=== PATIENT | male | born 1945 | race Caucasian/White ===

== ENCOUNTER 2016-04-19 21:29 | Inpatient (IN) | payer OTHER ==
[~2016-04-19] VITALS: Ht 177.8 cm; Wt 98.9 kg
--- NOTE | ~2016-04-19 | HC ---
[facility] [address] CONSULTATION Name: JULITA LOMAX Room #: 236-P ADM IN M.R.#: [id number] Admission: 04/19/16 Attend Phys: Hermes Gordillo MD, FAAF Discharge: Date of : 41 Report #: [id number] THIS REPORT FOR: //name// CC: Hermes Shields DATE OF SERVICE: 04/20/2016 ATTENDING PHYSICIAN: Hermes Gordillo MD REASON FOR CONSULTATION: Abdominal pain, nausea. HISTORY OF PRESENT ILLNESS: This is a 70-year-old male patient who lives in a chcf due to significant mental illness who has had difficulty with abdominal pain and nausea over the past couple of days. The patient does have a history of chronic constipation and requires occasional disimpaction. It is uncertain as to when his last bowel movement occurred. The patient denies nausea, vomiting or abdominal pain; however, he is a very poor historian. He was seen in the [place] [facility] where he was found to have leukocytosis and his CT scan revealed changes consistent with a partial small-bowel obstruction. I have been asked to see the patient for further evaluation and treatment. PAST MEDICAL AND SURGICAL HISTORY: Includes hypertension, hypokalemia, gout, bipolar mood disorder, schizoaffective disorder. PAST SURGICAL HISTORY: Laparoscopic cholecystectomy. CURRENT MEDICATIONS: Include ciprofloxacin, Flagyl and p.r.n. medications. At his last hospital discharge in 2013, he was on allopurinol, clonidine, Colace, GlycoLax, Sustenna, iron, losartan/hydrochlorothiazide, Lunesta, omeprazole, Pepto-Bismol, Pristiq, Toprol-XL, and other p.r.n. medications. ALLERGIES: PENICILLIN (unknown reaction). FAMILY HISTORY: Reviewed and noncontributory to this hospitalization. SOCIAL HISTORY: The patient lives in a chcf. There is no use of tobacco, alcohol, or illicit drugs. REVIEW OF SYSTEMS: As per history of present illness. Other review of systems is essentially unobtainable as the patient is unreliable and a poor medical esthetician. PHYSICAL EXAMINATION: VITAL SIGNS: Temperature 97.8, blood pressure 170/81, pulse 53, respirations 17. [facility] [address] [place] [address] CONSULTATION Name: JULITA LOMAX Room #: [address] [place] [address] IN .R.#: [id number] Admission: 04/19/16 Attend Phys: Hermes Gordillo MD, FAAF Discharge: Date of : 43 Report #: [id number] GENERAL: This is a 70-year-old male patient in no apparent distress. HEENT: Atraumatic, normocephalic with dry mucosal membranes. Oropharynx is otherwise clear. NECK: Supple, no appreciable lymphadenopathy. Trachea is midline. CHEST: Clear bilaterally. No crackles or wheezes. CARDIOVASCULAR: Sinus bradycardia. S1, S2. ABDOMEN: Soft and slightly distended with tenderness to palpation, greatest in the upper abdomen. He also has no appreciable incisional ventral hernia, partially reducible at the umbilicus. His laparoscopic cholecystectomy scars are otherwise well healed without apparent herniation. He has no palpable masses. No overlying erythema or edema. No rebound or guarding. GENITOURINARY: Normal external male genitalia. EXTREMITIES: No clubbing or cyanosis with mild right upper extremity edema. NEUROLOGIC: Cranial nerves 2-12 grossly intact. PSYCHIATRIC: Unable to assess. SKIN AND INTEGUMENTARY: No acute inflammatory changes, rashes or lesions are present. LABORATORY DATA: CBC shows a white blood cell count 29.4, hemoglobin 12.7, hematocrit 38.7 and platelets 255 with 88% segmented neutrophils and no bandemia at 3%. His white blood cell count last night was 34.2 with 9% bandemia. Lactic acid level at admission was 4.1. The patient received 2 liters of IV fluids and the patient is currently receiving crystalloid at 80 mL per hour. His lactate is 2.2 this morning. Comprehensive metabolic profile shows a sodium of 143, potassium 3.2, chloride 103, CO2 of 27, BUN 22, creatinine 2.1 and glucose 160 with normal liver function tests. The patient's lipase last night was normal at 78. Urinalysis showed trace protein and trace blood. RADIOLOGIC STUDIES: CT of the abdomen and pelvis without contrast showed findings consistent with a partial small-bowel obstruction with dilated loops of small bowel and interloop mesenteric edema with a transition point in the upper anterior pelvis. The patient also had multiple renal cysts, a fatty liver and a fat containing ventral hernia at the umbilicus without bowel involvement. IMPRESSION AND PLAN: This is a 70-year-old male patient with schizoaffective disorder and bipolar mood disorder significant enough to require his residence in a chcf. He is a poor historian and has pain on exam, but does not complain otherwise. He has evidence for a partial small-bowel obstruction possibly secondary to intraabdominal adhesions from his prior operation. He does not appear to be significantly constipated on the CT scan (he has a history of chronic constipation). The patient would benefit from placement of a nasogastric tube and may require restraints to keep this in place. I will follow along with serial abdominal exams and x-rays. An x-ray will be taken to ensure proper positioning of the nasogastric tube. He will also require increased IV fluids. He may ultimately require operative intervention dependent upon his clinical course. He will be followed closely in the [facility] [address] [place] [address] CONSULTATION Name: DAMIJULITA LAGUNAS Room #: 236-P ADM IN M.R.#: [id number] Admission: 04/19/16 Attend Phys: Hermes Gordillo MD, FAAF Discharge: Date of : 43 Report #: [id number] intensive care unit. I sincerely appreciate the opportunity to participate in the care of this patient and will leave further recommendations and orders in the electronic medical record as appropriate. <ELECTRONICALLY SIGNED> By: Mich Shields MD, FACS 04/22/16 1012 [id number] Mich Shields MD, FACS /nt
--- NOTE | ~2016-04-19 | O ---
[facility] [place] [address] OPERATIVE REPORT Name: JULITA LOMAX Room #: 308-P ADM IN M.R.#: [id number] Admission: 04/19/16 Attend Phys: Hermes Gordillo MD, FAAF Discharge: Date of : 43 Report #: [id number] THIS REPORT FOR: //name// CC: Hermes Shields DATE OF SERVICE: 04/22/2016 PREOPERATIVE DIAGNOSES: 1. Small-bowel obstruction. 2. Incisional ventral hernia. 3. Schizophrenia. 4. Bipolar mood disorder. POSTOPERATIVE DIAGNOSES: 1. Small-bowel obstruction secondary to phytobezoar. 2. Recurrent incarcerated incisional ventral hernia. 3. Schizoaffective disorder. 4. Bipolar mood disorder. PROCEDURE: 1. Laparoscopic converted to open segmental small bowel resection. 2. Laparoscopic lysis of adhesions. 3. Primary repair of recurrent incarcerated incisional ventral hernia. SURGEON: Mich Shields MD BIG DATA ENGINEER: Bernardo Llanos MD and Briana Valerio MS4. ANESTHESIA: General endotracheal anesthesia and local anesthetic. ESTIMATED BLOOD LOSS: 5 mL. SPECIMEN: Segment of mid jejunum. COMPLICATIONS: None appreciated. INDICATIONS FOR PROCEDURE: This is a 70-year-old male patient with mental illness (schizoaffective disorder and bipolar mood disorder) who is a poor historian and lives in a jail. He has a history of chronic constipation requiring occasional fecal disimpaction. He was seen in [place] [facility] where he underwent a CT of the abdomen and pelvis showing changes consistent with a partial small-bowel obstruction. He was treated conservatively with placement of a nasogastric tube and he was followed with serial abdominal exams and x-rays. His initial elevated lactate improved with IV fluid resuscitation. Despite this, he had no clearance of his small-bowel [facility] [address] [place] [address] OPERATIVE REPORT Name: JULITA LOMAX Room #: 308-P [facility] IN .R.#: [id number] Admission: 04/19/16 Attend Phys: Hermes Gordillo MD, FAAF Discharge: Date of : 43 Report #: [id number] obstruction with conservative measures. He presents now for laparoscopic release of his small-bowel obstruction, possible laparotomy. OPERATIVE FINDINGS: Upon entrance into the abdominal cavity laparoscopically, dilated bowel was visualized. The only adhesions present were that of the omentum to the anterior abdominal wall where the recurrent incarcerated incisional ventral hernia was seen. Surgidac sutures were seen at the hernia repair site. The hernia had no bowel involvement; only omentum. There were no other significant intra-abdominal adhesions and as such an internal hernia was not identified. The small bowel was run several times and it was determined that there was a mass present in the small bowel causing the obstruction. The cause of the obstruction appeared to be secondary to an unchewed, undigested whole Brussel sprout. After transversely closing the longitudinal enterotomy used to extract the mass, the lumen of the bowel was palpably smaller than anticipated and thus resection was necessary, particularly given the fact that the patient routinely does not chew his food. No other significant intra-abdominal pathology was identified. At the conclusion of the operation, the sponge, needle, and instrument counts were correct. There was no evidence for iatrogenic injury. DESCRIPTION OF PROCEDURE IN DETAIL: After the benefits and risks of the procedure were explained to the patient and his durable power of defense attorney which include but are not limited to risks of bleeding, infection, possible need for conversion to an open procedure, postoperative pain, and postoperative expectations, informed consent was obtained. The patient was identified in the preoperative holding area. He was given IV antibiotics as documented in the chart in line with the SCIP protocol. The patient was then taken to the operating room and he was placed in the supine position. SCDs were placed on the patient's bilateral lower extremities and pneumatic compression was initiated. The patient was then given IV sedation and he was intubated without incident. His abdomen was prepped and draped in the standard sterile fashion. A time-out was performed to identify the correct patient and procedure. Local anesthetic was infiltrated into the skin and subcutaneous tissue in the left upper quadrant of the abdomen. A small transverse incision was made and a 5 mm Visiport was placed intraperitoneally with a 0-degree angled laparoscope. Pneumoperitoneum was achieved with insufflation of carbon dioxide to 15 mmHg. A 30-degree angled laparoscope was inserted. A left lateral 5 mm and left lower quadrant 5 mm port were each placed under direct visualization after local anesthetic was infiltrated into the skin and subcutaneous tissue and appropriately sized incisions were made. Findings are as noted above. The bowel was run from the ligament of Treitz down to the terminal ileum and back. While doing so, no adhesions were seen. Prior to doing this, omental [facility] [address] [place] [address] OPERATIVE REPORT Name: JULITA LOMAX Room #: 308-P ADM IN M.R.#: [id number] Admission: 04/19/16 Attend Phys: Hermes Gordillo MD, [facility] Discharge: Date of : 43 Report #: [id number] adhesions to the anterior abdominal wall were carefully taken down with blunt dissection and judicious use of the ultrasonic dissector. Again, there was no bowel involvement. An internal hernia was not identified. After running the bowel several times, mass was palpable at visible transition zone. A grasper was placed on the bowel proximal to this area. A small vertical midline incision was then made through the old hernia and the abdominal cavity was desufflated. The small bowel was delivered through the opening. The subcutaneous tissue and hernia sac had been opened with electrocautery. After delivering the mass, decision was made to initially try extracting the mass with an enterotomy. A longitudinal full thickness enterotomy was created with a 10 blade scalpel. The mass was excised (it appeared to be an unchewed, undigested Brussel sprout). The mass was sent for specimen. The bowel was then closed transversely so as to attempt to not narrow the lumen. Interrupted 3-0 PDS sutures with full thickness bites were used to close the enterotomy. Interrupted 3-0 PDS Lembert sutures were used to imbricate the repair. The repair was tested with pinching off the bowel distal to the closure with milking of small bowel content from the proximal aspect. There was no leakage; however, the lumen of the bowel was palpably diminished secondary to the closure. Decision was made to resect the area. Proximal and distal to the closure site, mesenteric windows were made with electrocautery. Blue load ALLEY stapler was then used to staple and divide the bowel proximally and distally. The mesentery was divided with the LigaSure impact energy device. The segment of mid jejunum was sent for specimen. The small bowel was then anastomosed in a bobo-ta-gjie functional end-to-end fashion. The antimesenteric corners of the bowel were approximated with a 3-0 PDS suture. The antimesenteric corners were excised. Each limb of the 75-mm blue load ALLEY stapler was then passed down each limb of the small bowel at the antimesenteric surface. The stapler was fired and removed. The common enterotomy was then approximated with Allis clamps. A blue load 60 mm TX stapler was then used to staple off the common enterotomy. A simple interrupted 3-0 PDS anti-tension suture was placed at the crotch of the anastomosis. The mesenteric defect was also closed with a running 3-0 PDS suture. The common enterotomy staple line was imbricated with interrupted 3-0 PDS sutures as well. The anastomosis was palpably patent. The small bowel was then run manually through the incision. The small bowel and the anastomosed segment were returned to the abdominal cavity. The fascia was then closed with a running #1 PDS suture. Prior to tying the suture, the abdominal cavity was reinsufflated to ensure no incorporation of abdominal content. The abdomen was visualized and did appear to be stable with no evidence for iatrogenic injury. The abdominal cavity was then desufflated after tying the fascial suture. The wound was irrigated. The ports were removed. Interrupted subcuticular 4-0 Monocryl sutures and Dermabond were used to close the port site incisions. The PDS suture used to close the midline incision. Essentially repaired the recurrent incarcerated incisional ventral hernia. Prior to doing so, the Surgidac foreign body sutures were removed. The wound [address] [address] OPERATIVE REPORT Name: JULITA LOMAX Room #: 308-P ADM IN M.R.#: [id number] Admission: 04/19/16 Attend Phys: Hermes Gordillo MD, FAAF Discharge: Date of : 43 Report #: [id number] was then irrigated. The INSORB absorbable skin closure device was then used to close the midline incision. The patient tolerated the procedure well. He was awakened, extubated, and taken to recovery room in stable condition with no apparent intraoperative complications. <ELECTRONICALLY SIGNED> By: Mich Shields MD, FACS 04/25/16 0741 [id number] Mich Shields MD, FACS /nt
--- NOTE | ~2016-04-19 | H ---
[facility] [place] [address] HISTORY AND PHYSICAL Name: JULITA LOMAX Room #: 308-P [facility] IN M.R.#: [id number] Admission: 04/19/16 Attend Phys: Hermes Gordillo MD, [facility] Discharge: 04/30/16 Date of : 43 Report #: [id number] THIS REPORT FOR: //name// CC: Hermes Shields DATE OF SERVICE: 04/20/2016 CHIEF COMPLAINT: Abdominal pain. HISTORY OF PRESENT ILLNESS: The patient is a 70-year-old white male well known to me. He is a [facility] resident at [facility] and I have taken care of him for a number of years. He developed abdominal pain on the day of the admission. It was evaluated in the Emergency Department at [facility]. CT scan showed partial small-bowel obstruction. He also had a dramatic leukocytosis in the 34,000 range and a positive lactate consistent with sepsis. He is admitted to the ICU. IV antibiotics were started with Cipro and Flagyl and a General Surgery consult for Dr. Mich Shields was placed. PAST MEDICAL HISTORY: Hypertension, hypokalemia, gout, schizoaffective disorder, bipolar affective disorder. MEDICATIONS: Allopurinol 300 mg 1 p.o. daily, Klor-Con 20 mEq 1 p.o. daily, ferrous sulfate 325 mg 1 p.o. daily, losartan/hydrochlorothiazide 50/12.51 p.o. daily, omeprazole 20 mg 1 p.o. daily, Lunesta 2 mg 1 p.o. at bedtime p.r.n. insomnia, MiraLax 17 grams p.o. daily p.r.n. constipation, Flomax 0.4 mg 1 p.o. one half hour after same meal each day, multivitamin 1 p.o. daily, Pristiq 50 mg p.o. daily, Robitussin p.r.n. cough, Pepto-Bismol p.r.n, Colace 100 mg 1 p.o. b.i.d. p.r.n. stool softener, Toprol-XL 50 mg 1 p.o. b.i.d., clonidine 0.1 mg p.o. t.i.d., Abilify ER 400 mg IM monthly. ALLERGIES: PENICILLIN. SOCIAL HISTORY: Nonsmoker, nondrinker. Lives in [facility], [facility]. FAMILY HISTORY: Noncontributory. REVIEW OF SYSTEMS: GENERAL: He has had no fever or chills. He has had nausea without vomiting. EYES: No visual changes. ENT: No problems with hearing, swallow, taste or smell. CARDIOVASCULAR: No chest pain or palpitations. RESPIRATORY: No difficulty breathing. GASTROINTESTINAL: Abdominal pain, partial small-bowel obstruction, nausea without vomiting. GENITOURINARY: BPH, but no current problems urinating. [address] [address] HISTORY AND PHYSICAL Name: JULITA LOMAX Room #: 308-P [facility] IN M.R.#: [id number] Admission: 04/19/16 Attend Phys: Hermes Gordillo MD, FAAF Discharge: 04/30/16 Date of : 43 Report #: [id number] MUSCULOSKELETAL: No muscle or joint pain. NEUROLOGIC: No paresis, paralysis or paresthesias. PSYCHIATRIC: No feelings of depression. He is bipolar, but his affect is bright presently despite being sick. DERMATOLOGIC: No disturbing lesions or rash. Remainder of system review is negative. OBJECTIVE: VITAL SIGNS: Temperature 36.9, pulse 115, respirations 16, blood pressure 145/90, pulse ox on 2 liters nasal cannula 96%. He weighs 200 pounds or 90.72 kilograms. He is in a good mood. He has an NG tube to intermittent wall suction. HEENT: Pupils equal, round, react to light and accommodation. Extraocular muscles intact. Pharynx unremarkable. NECK: Supple. CARDIOVASCULAR: S1, S2. LUNGS: Clear. ABDOMEN: Slightly distended and mildly diffusely tender. He does have sluggish bowel sounds. EXTREMITIES: No cyanosis, clubbing or edema. NEUROLOGIC: Intact without focal neurologic deficits. LABORATORY DATA: CBC: White count 34.2, hemoglobin 13.9, hematocrit 41.6, platelets 266,000. Differential white count 85% segmented neutrophils, 9% band forms. Serum chemistry: Sodium 143, potassium 3.6, chloride 102, CO2 of 27, BUN 25, creatinine 2.4, estimated glomerular filtration rate 27. Glucose 196. Lactate 4.1. Calcium 9.7, total bilirubin 0.7, AST 29, ALT 36, alkaline phosphatase 126, total protein 7.1. Albumin 3.4, lipase 78. IMAGING: CT scan abdomen and pelvis without contrast done from the Emergency Room shows findings consistent with partial small-bowel obstruction with dilated loops of small bowel with interloop mesenteric edema and transition point within the anterior upper pelvis. Multiple bilateral renal masses most consistent with cysts are seen increased in size in the interval with the large exophytic from the left superior renal pole measuring up to 10.5 cm, fatty liver and fat containing umbilical hernia. ASSESSMENT: Partial small-bowel obstruction, sepsis, abdominal pain, leukocytosis, hypertension, bipolar affective disorder, schizoaffective disorder. [address] [place] [address] HISTORY AND PHYSICAL Name: JULITA LOMAX Room #: 308-P [facility] IN M.R.#: [id number] Admission: 04/19/16 Attend Phys: Hermes Gordillo MD, [facility] Discharge: 04/30/16 Date of : 43 Report #: [id number] PLAN: Admit to ICU. IV antibiotics, ____, agree with NG tube. General surgery consult working. Follow labs longitudinally and cultures. <ELECTRONICALLY SIGNED> By: Hermes Gordillo MD, PROSPER, JOSIE 05/01/16 1512 1358 [id number] Hermes Gordillo MD, PROSPER, FACEP /nt
--- NOTE | ~2016-04-19 | S ---
[facility] [place] [address] SURGICAL PATH RPT PROCEDURE Name: JULITA DIXON Room #: 236-P ADM IN M.R.#: [id number] Admission: 04/19/16 Date of : 41 Discharge: Report #: [id number] Path Case #: [id number] PATHOLOGY REPORT COLLECTION DATE: 04/22/2016 RECEIVED DATE: 04/23/2016 SUBMITTING PHYS: Dr. Mich Shields OTHER PHYS: Dr. Hermes Llanos SPECIMEN(S) RECEIVED: A.Mid jejunum with forgein body B.Contents of incisional ventral hernia * * * * * * * * * * * * FINAL DIAGNOSIS: A. Small bowel, mid jejunum with forgein body, resection: - Marked edema and congestion of the submucosa. - Vegetable material measuring 2.8 cm in greatest dimensions, consistent with a foreign body (gross exam only). - Margins viable and unremarkable. B. Contents of incisional ventral hernia: - Marked acute inflammation with abscess formation amidst fibroadipose tissue. (IUV; 04/24/16) PATHOLOGIST: Genie Price M.D. REPORT ELECTRONICALLY SIGNED BY: Genie Price M.D. DATE/TIME: 04/24/2016 16:07 * * * * * * * * * * * * GROSS PATHOLOGY: A. The specimen is received in formalin labeled "Julita Dixon, mid jejunum with foreign body". Received is an unoriented segment of small bowel measuring 7.2 cm in length by 2.7 cm in diameter. Both margins are stapled closed. The attached mesenteric fat measures 2.7 cm in thickness. The serosal surface is pink-esparza, glistening in appearance with multiple sutures present at the mid-aspect of the specimen. Opening the specimen reveals light esparza mucosa with slightly edematous normal architectural folds. No distinct nodules or lesions are noted grossly. Sectioning through the attached mesenteric fat reveals no readily identifiable lymph nodes. The specimen is submitted representatively as follows: A1-A2 margin and opposite margin A3 customer success representative cross sections of mucosa. Also received within the specimen container is a segment of [address] [address] SURGICAL PATH RPT PROCEDURE Name: JULITA DIXON Room #: 236-P ADM IN [facility].#: [id number] Admission: 04/19/16 Date of : 43 Discharge: Report #: [id number] Path Case #: [id number] vegetative material, possible brussels sprouts, measuring 2.8 x 2.7 x 2.6 cm in greatest dimensions. A gross photograph is taken and sections are not submitted. B. The specimen is received in formalin labeled "Julita Dixon, incisional ventral hernia contents". Received is a segment of yellow-esparza lobulated tissue measuring 3.2 x 1.5 x 0.5 cm in greatest dimensions. Sectioning reveals yellow-esparza, lobulated cut surfaces with no grossly distinct nodules or lesions. The specimen is submitted entirely in cassette B1. (CAA; 04/23/2016) CLINICAL HISTORY: Incisional ventral hernia with bowel obstruction INITIAL CPT CODE(S): A; 77033 B; 70450 Professional services performed by [facility] at [facility] [address] [place] [address] Technical services performed by [facility] at [address] [place] [address], [address], [place] [address]. [facility] [address] [place] [address] PHONE: [phone] DIRECTOR: Nish Orlando M.D. * * * END OF REPORT * * *
--- NOTE | ~2016-04-19 | EKG ---
[address] [address] ELECTROCARDIOGRAM REPORT Name: JULITA LOMAX Room #: 236-P ADM IN M.R.#: [id number] Admission: 04/19/16 Attend Phys: Hermes Gordillo MD, [facility] Discharge: Date of : 41 Report #: [id number] THIS REPORT FOR: //name// [facility] Test Date: 2016-04-23 Test Time: 15:41:48 Pat Name: JULITA LOMAX Department: Room: 236 P Gender: M Hospitality House Supervisor: Parker FONTENOT : 1945 Requested By: Hermes Gordillo Order Number: [id number] MD: Rohith Celis Measurements Intervals [place] Rate: 104 P: 16 WY: 144 QRS: 1 QRSD: 98 T: -9 QT: 446 QTc: 587 Interpretive Statements Sinus tachycardia Supraventricular bigeminy Borderline T abnormalities, diffuse leads Prolonged QT interval No previous ECG available for comparison Electronically Signed On 04-23-2016 16:04:15 WINDER HELPER by Rohith Celis [email or web address] <ELECTRONICALLY SIGNED> By: Rohith Celis MD 04/23/16 1604 1541 1541 Rohith Celis MD /EPI
[~2016-04-19 21:29] MED LIST: ALLOPURINOL 30300 M1 PO; AMBEREN PO; APAP500 PO; CARAFATE 1 GM TA1 G1 PO; CHLORTHALIDONE25 MG PO; CLONIDINE PO; CLONIDINE0.1 PO; COLACE 100 MG100 MG PO; COLACE100 MG PO; DESYREL100 MG PO; DOXYCYCLINE 10100 M1 PO; GENTAMICIN SU3 MG/ML OP; GLYCOLAX POWDER17 G1 PO; GLYCOLAX255 GM PO; HALOPERIDO50 MG/1 M1 IM; HYDROCORTISONE120 M1; INDOMETHACIN 2525 MG PO; INVEGA SUS156 MG/1 M IM; IRON325 PO; K-DUR10 ME1 PO; LOSARTAN-HCTZ1 EACH; LOSARTAN-HCTZ1 EACH PO; LUNESTA2 MG; LUNESTA2 MG PO; NORCO 5-325 TA1 EACH PO; OMEPRAZOLE 20 M20 M1 PO; PEPTO-BISM525 MG/15 PO; POTASSIUM20 PO; PRENATAL + DHA1 EACH PO; PRISTIQ50 M1 PO; PRISTIQ50 MG PO; PROTONIX40 M2 PO; ROBITUSSIN DM118 ML PO; TOPROL XL100 MG PO; TOPROL XL50 MG PO
[2016-04-19 21:30] VITALS: BP 145/90
[2016-04-19 22:02] LABS: HEMATOCRIT 41.6 % (42.0-52.0); HEMOGLOBIN 13.9 gm/dL (14.0-18.0); MCH 29.9 pg (26.0-34.0); MCHC 33.5 % (28.0-37.0); MCV 89.4 fL (80.0-100.0); PLATELET COUNT 266 thou/uL (150-400); RBC 4.66 mil/uL (4.50-6.00); RDW 14.5 % (10.5-14.5); WBC 34.2 thou/uL (4.0-11.0)
[2016-04-19 22:03] LABS: MANUAL DIFF YES
[2016-04-19 22:12] LABS: URINE BILIRUBIN NEGATIVE (Negative); URINE BLOOD TRACE (Negative); URINE COLOR YELLOW; URINE GLUCOSE-RANDOM* NEGATIVE (Negative); URINE KETONES NEGATIVE (Negative); URINE LEUKOCYTES-REFLEX NEGATIVE (Negative); URINE PROTEIN (DIPSTICK) TRACE (Negative); URINE SPECIFIC GRAVITY 1.015 (1.003-1.035); URINE UROBILINOGEN 0.2 E.U./dl (0.2-1.0)
[2016-04-19 22:13] LABS: CALCIUM 9.7 mg/dL (8.5-10.1); CREATININE 2.4 mg/dL (0.6-1.3); POTASSIUM 3.6 mmol/L (3.5-5.1)
[2016-04-19 22:20] LABS: ALBUMIN 3.4 g/dL (3.4-5.0); TOTAL BILIRUBIN 0.7 mg/dL (<0.1-1.0); TOTAL PROTEIN 7.1 g/dL (6.4-8.2)
[2016-04-19 22:35] LABS: ABSOLUTE NEUTROPHILS 32.1 thou/uL (1.4-8.2); PLATELET ESTIMATE NORMAL; TOTAL CELL COUNT 100
[2016-04-19] MEDS ORDERED: GABAPENTIN 100100 MG PO (22:35)
[2016-04-19] MEDS ORDERED: POTASSIUM20 PO (22:36)
[2016-04-19] MEDS ORDERED: THEREMS-M1 EACH PO (22:38)
[2016-04-19] MEDS ORDERED: ROBITUSSIN COU118 M6 (22:40)
[2016-04-20] VITALS (37 sets, daily range): BP systolic 129–203; BP diastolic 71–104
[2016-04-20 04:31] LABS: HEMATOCRIT 38.7 % (42.0-52.0); HEMOGLOBIN 12.7 gm/dL (14.0-18.0); MCH 29.9 pg (26.0-34.0); MCHC 32.9 % (28.0-37.0); MCV 90.6 fL (80.0-100.0); PLATELET COUNT 255 thou/uL (150-400); RBC 4.27 mil/uL (4.50-6.00); RDW 14.5 % (10.5-14.5); WBC 29.4 thou/uL (4.0-11.0)
[2016-04-20 04:32] LABS: MANUAL DIFF YES
[2016-04-20 04:58] LABS: ALBUMIN 2.9 g/dL (3.4-5.0); CALCIUM 9.1 mg/dL (8.5-10.1); CREATININE 2.1 mg/dL (0.6-1.3); POTASSIUM 3.2 mmol/L (3.5-5.1); TOTAL BILIRUBIN 0.8 mg/dL (<0.1-1.0); TOTAL PROTEIN 6.5 g/dL (6.4-8.2)
[2016-04-20 05:01] LABS: ABSOLUTE NEUTROPHILS 26.8 thou/uL (1.4-8.2); PLATELET ESTIMATE NORMAL; TOTAL CELL COUNT 100
[2016-04-21] VITALS (38 sets, daily range): BP systolic 98–210; BP diastolic 38–110
[2016-04-21 05:15] LABS: HEMOGLOBIN 13.2 gm/dL (14.0-18.0); MCH 29.6 pg (26.0-34.0); MCV 89.4 fL (80.0-100.0); PLATELET COUNT 243 thou/uL (150-400); RBC 4.47 mil/uL (4.50-6.00); RDW 14.7 % (10.5-14.5); WBC 19.6 thou/uL (4.0-11.0)
[2016-04-21 05:27] LABS: MANUAL DIFF YES
[2016-04-21 05:32] LABS: ALBUMIN 2.9 g/dL (3.4-5.0); CALCIUM 9.2 mg/dL (8.5-10.1); CREATININE 1.8 mg/dL (0.6-1.3); POTASSIUM 3.4 mmol/L (3.5-5.1); TOTAL BILIRUBIN 0.6 mg/dL (<0.1-1.0); TOTAL PROTEIN 6.5 g/dL (6.4-8.2)
[2016-04-21 06:48] LABS: ABSOLUTE NEUTROPHILS 16.7 thou/uL (1.4-8.2); PLATELET ESTIMATE NORMAL; TOTAL CELL COUNT 100
[2016-04-21 20:56] LABS: MAGNESIUM 1.5 mg/dL (1.8-2.4)
[2016-04-21 21:09] LABS: POTASSIUM 2.9 mmol/L (3.5-5.1)
[2016-04-22] VITALS (77 sets, daily range): BP systolic 120–174; BP diastolic 63–143
[2016-04-22 04:55] LABS: CALCIUM 9.4 mg/dL (8.5-10.1); CREATININE 1.9 mg/dL (0.6-1.3); POTASSIUM 3.3 mmol/L (3.5-5.1)
[2016-04-22 05:01] LABS: ABSOLUTE NEUTROPHILS 12.9 thou/uL (1.4-8.2); BASOPHILS 0.4 % (0.0-2.0); EOSINOPHILS 2.1 % (0.0-3.0); HEMATOCRIT 41.7 % (42.0-52.0); HEMOGLOBIN 13.7 gm/dL (14.0-18.0); LYMPHOCYTES 10.8 % (24.0-44.0); MCH 29.9 pg (26.0-34.0); MCHC 32.8 % (28.0-37.0); MCV 91.1 fL (80.0-100.0); MONOCYTES 6.2 % (1.0-8.0); PLATELET COUNT 272 thou/uL (150-400); POLYS 80.5 % (36.0-66.0); RBC 4.58 mil/uL (4.50-6.00)
[2016-04-22 05:05] LABS: MANUAL DIFF NO
[2016-04-23] VITALS (89 sets, daily range): BP systolic 121–175; BP diastolic 53–150
[2016-04-24] VITALS (47 sets, daily range): BP systolic 95–168; BP diastolic 54–96
[2016-04-24 05:57] LABS: ABSOLUTE NEUTROPHILS 14.1 thou/uL (1.4-8.2); BASOPHILS 0.5 % (0.0-2.0); EOSINOPHILS 2.4 % (0.0-3.0); HEMATOCRIT 38.1 % (42.0-52.0); HEMOGLOBIN 12.4 gm/dL (14.0-18.0); LYMPHOCYTES 10.5 % (24.0-44.0); MCH 29.5 pg (26.0-34.0); MCHC 32.7 % (28.0-37.0); MCV 90.2 fL (80.0-100.0); PLATELET COUNT 242 thou/uL (150-400); POLYS 78.6 % (36.0-66.0); RBC 4.22 mil/uL (4.50-6.00); RDW 15.1 % (10.5-14.5)
[2016-04-24 06:01] LABS: MANUAL DIFF NO
[2016-04-24 06:14] LABS: ALBUMIN 2.4 g/dL (3.4-5.0); CALCIUM 8.5 mg/dL (8.5-10.1); CREATININE 1.9 mg/dL (0.6-1.3); MAGNESIUM 1.4 mg/dL (1.8-2.4); POTASSIUM 3.6 mmol/L (3.5-5.1); TOTAL BILIRUBIN 0.5 mg/dL (<0.1-1.0); TOTAL PROTEIN 5.6 g/dL (6.4-8.2)
[2016-04-25 00:02] VITALS: BP 131/67
[2016-04-25 04:00] VITALS: BP 175/98
[2016-04-25 05:13] LABS: ABSOLUTE NEUTROPHILS 16.3 thou/uL (1.4-8.2); BASOPHILS 0.3 % (0.0-2.0); EOSINOPHILS 1.5 % (0.0-3.0); HEMATOCRIT 40.7 % (42.0-52.0); HEMOGLOBIN 12.9 gm/dL (14.0-18.0); LYMPHOCYTES 8.3 % (24.0-44.0); MCH 29.5 pg (26.0-34.0); MCHC 31.8 % (28.0-37.0); MCV 92.7 fL (80.0-100.0); MONOCYTES 6.4 % (1.0-8.0); PLATELET COUNT 296 thou/uL (150-400); POLYS 83.5 % (36.0-66.0); RBC 4.39 mil/uL (4.50-6.00); RDW 15.4 % (10.5-14.5); WBC 19.6 thou/uL (4.0-11.0)
[2016-04-25 05:50] LABS: MANUAL DIFF NO
[2016-04-25 07:30] VITALS: BP 166/93
[2016-04-25 12:20] VITALS: BP 150/95
[2016-04-25 16:00] VITALS: BP 152/94
[2016-04-25 20:15] VITALS: BP 172/99
[2016-04-26 00:56] VITALS: BP 157/77
[2016-04-26 04:15] VITALS: BP 169/99
[2016-04-26 06:15] LABS: ABSOLUTE NEUTROPHILS 10.4 thou/uL (1.4-8.2); BASOPHILS 0.4 % (0.0-2.0); EOSINOPHILS 4.5 % (0.0-3.0); HEMATOCRIT 39.2 % (42.0-52.0); HEMOGLOBIN 12.6 gm/dL (14.0-18.0); LYMPHOCYTES 16.8 % (24.0-44.0); MCH 29.7 pg (26.0-34.0); MCHC 32.1 % (28.0-37.0); MCV 92.5 fL (80.0-100.0); MONOCYTES 6.6 % (1.0-8.0); PLATELET COUNT 296 thou/uL (150-400); POLYS 71.7 % (36.0-66.0); RBC 4.24 mil/uL (4.50-6.00); RDW 14.8 % (10.5-14.5); WBC 14.5 thou/uL (4.0-11.0)
[2016-04-26 06:17] LABS: MANUAL DIFF NO
[2016-04-26 09:22] VITALS: BP 149/83
[2016-04-26 13:54] VITALS: BP 151/96
[2016-04-26 21:10] VITALS: BP 160/94
[2016-04-27 00:25] VITALS: BP 175/80
[2016-04-27 05:10] VITALS: BP 165/90
[2016-04-27 05:33] LABS: ABSOLUTE NEUTROPHILS 7.4 thou/uL (1.4-8.2); BASOPHILS 0.7 % (0.0-2.0); EOSINOPHILS 3.8 % (0.0-3.0); HEMATOCRIT 37.5 % (42.0-52.0); HEMOGLOBIN 12.1 gm/dL (14.0-18.0); LYMPHOCYTES 20.6 % (24.0-44.0); MCH 29.7 pg (26.0-34.0); MCHC 32.2 % (28.0-37.0); MCV 92.5 fL (80.0-100.0); MONOCYTES 8.3 % (1.0-8.0); PLATELET COUNT 279 thou/uL (150-400); POLYS 66.6 % (36.0-66.0); RBC 4.06 mil/uL (4.50-6.00); RDW 14.7 % (10.5-14.5); WBC 11.1 thou/uL (4.0-11.0)
[2016-04-27 06:08] LABS: MANUAL DIFF NO
[2016-04-27 12:25] VITALS: BP 146/69
[2016-04-27 19:42] VITALS: BP 140/94
[2016-04-28] VITALS (7 sets, daily range): BP systolic 136–166; BP diastolic 69–86
[2016-04-28 06:01] LABS: EOSINOPHILS 3.8 % (0.0-3.0); HEMATOCRIT 35.4 % (42.0-52.0); HEMOGLOBIN 11.9 gm/dL (14.0-18.0); LYMPHOCYTES 18.8 % (24.0-44.0); MCH 30.4 pg (26.0-34.0); MCHC 33.7 % (28.0-37.0); MCV 90.1 fL (80.0-100.0); MONOCYTES 7.8 % (1.0-8.0); PLATELET COUNT 283 thou/uL (150-400); POLYS 68.6 % (36.0-66.0); RBC 3.92 mil/uL (4.50-6.00); RDW 14.4 % (10.5-14.5); WBC 10.2 thou/uL (4.0-11.0)
[2016-04-28 06:18] LABS: CALCIUM 8.4 mg/dL (8.5-10.1); CREATININE 1.6 mg/dL (0.6-1.3); POTASSIUM 3.6 mmol/L (3.5-5.1)
[2016-04-28 06:19] LABS: MANUAL DIFF NO
[2016-04-29 00:35] VITALS: BP 151/123
[2016-04-29 04:17] VITALS: BP 161/85
[2016-04-29 05:55] LABS: ABSOLUTE NEUTROPHILS 9.2 thou/uL (1.4-8.2); BASOPHILS 0.9 % (0.0-2.0); EOSINOPHILS 2.6 % (0.0-3.0); HEMATOCRIT 35.7 % (42.0-52.0); HEMOGLOBIN 11.9 gm/dL (14.0-18.0); LYMPHOCYTES 19.3 % (24.0-44.0); MCH 29.7 pg (26.0-34.0); MCHC 33.3 % (28.0-37.0); MCV 89.4 fL (80.0-100.0); MONOCYTES 7.9 % (1.0-8.0); PLATELET COUNT 286 thou/uL (150-400); POLYS 69.3 % (36.0-66.0); RDW 14.6 % (10.5-14.5); WBC 13.2 thou/uL (4.0-11.0)
[2016-04-29 06:07] LABS: MANUAL DIFF NO
[2016-04-29 08:50] VITALS: BP 119/81
[2016-04-29 11:49] VITALS: BP 141/74
[2016-04-29 15:02] VITALS: BP 151/82
[2016-04-29 20:00] VITALS: BP 121/71
[2016-04-30 00:07] VITALS: BP 137/69
[2016-04-30 04:41] VITALS: BP 112/73
[2016-04-30 07:46] VITALS: BP 123/79
[2016-04-30 15:49] VITALS: BP 138/57
[2016-04-30 16:14] VITALS: BP 138/57
== END 2016-04-30 19:00 | disposition home or self-care (01) | DRG 854 ==
LOC: ER 21:29 → EROBS 23:42 → ICU 23:42 → 3N 04-24 23:19
PROVIDERS: Emergency Medicine; Family Medicine; Internal Medicine; Surgery
PROC: 05HB33Z Insertion of Infusion Device into Right Basilic Vein, Percutaneous Approach (ICD-10-PCS; 2016-04-23)
PROC: B54MZZA Ultrasonography of Right Upper Extremity Veins, Guidance (ICD-10-PCS; 2016-04-23)
PROC: 0DB80ZZ Excision of Small Intestine, Open Approach (ICD-10-PCS; principal; 2016-04-24)
PROC: 0WQF0ZZ Repair Abdominal Wall, Open Approach (ICD-10-PCS; 2016-04-24)
PROC: 0WJF4ZZ Inspection of Abdominal Wall, Percutaneous Endoscopic Approach (ICD-10-PCS; 2016-04-24)
PROC: 0DNS0ZZ (ICD-10-PCS; 2016-04-24)
DX: A41.9 Sepsis, unspecified organism (principal); K56.5 Intestinal adhesions [bands] with obstruction (postinfection); K56.60 Unspecified intestinal obstruction; N17.9 Acute kidney failure, unspecified; E44.0 Moderate protein-calorie malnutrition; E83.42 Hypomagnesemia; E87.6 Hypokalemia; T18.3XXA Foreign body in small intestine, initial encounter; K59.09 Other constipation; I10 Essential (primary) hypertension; F31.9 Bipolar disorder, unspecified; F25.9 Schizoaffective disorder, unspecified; M10.9 Gout, unspecified; Z79.899 Other long term (current) drug therapy; Z90.49 Acquired absence of other specified parts of digestive tract; Z88.0 Allergy status to penicillin; Z23 Encounter for immunization
CPT/HCPCS: 10078; 10096; 23026; 27000; 50093; 50101; 50249; 50386; 50455; 50555; 50648; 50962; 51435; 51489; 51708; 51712; 52265; 53307; 54118; 56462; 56525; 56526; 56530; 57092; 62110; 62900; 70005

== ENCOUNTER 2017-04-24 15:25 | Inpatient (IN) | payer OTHER ==
[~2017-04-24] VITALS: Ht 177.8 cm; Wt 108.4 kg
[2017-04-24] VITALS: BP 153/77
--- NOTE | ~2017-04-24 | EKG ---
[place] [address] [facility] [place] [address] ELECTROCARDIOGRAM REPORT Name: JULITA LOMAX Room #: 170-8 ADM IN M.R.#: [id number] Admission: 04/24/17 Attend Phys: Sergio Varghese DO Discharge: Date of : 41 Report #: [id number] THIS REPORT FOR: //name// [facility] ED Test Date: 2017-04-24 Test Time: 15:43:29 Pat Name: JULITA LOMAX Department: Room: 170 Gender: M Watch Dial Printer: MZOOK : 1945 Requested By: Galina Philip Order Number: [id number] MD: Yifan Manley Measurements Intervals [place] Rate: 62 P: 40 NM: 200 QRS: 6 QRSD: 105 T: 4 QT: 447 QTc: 454 Interpretive Statements Sinus rhythm No significant abnormality Compared to ECG 04/23/2016 15:41:48 ST (T wave) deviation now present Sinus tachycardia no longer present Atrial premature complex(es) no longer present Electronically Signed On 04-24-2017 17:10:51 CELLULAR EQUIPMENT REPAIRER by Yifan Manley [email or web address] <ELECTRONICALLY SIGNED> By: Yifan Manley MD, [facility] 04/24/17 1710 1543 1543 Yifan Manley MD, [facility] /EPI
[2017-04-24 15:25] VITALS: BP 136/52
[~2017-04-24 15:25] MED LIST changes: +GABAPENTIN 100100 MG PO; +ROBITUSSIN COU118 M6; +THEREMS-M1 EACH PO
[2017-04-24 15:53] LABS: HEMATOCRIT 40.1 % (42.0-52.0); HEMOGLOBIN 13.8 gm/dL (14.0-18.0); MCH 30.5 pg (26.0-34.0); MCHC 34.3 g/dL (28.0-37.0); PLATELET COUNT 291 thou/uL (150-400); RBC 4.51 mil/uL (4.50-6.00); RDW 14.1 % (10.5-14.5)
[2017-04-24 15:57] LABS: ANION GAP 11 mmol/L (7-16); BUN 29 mg/dL (7-18); CALCIUM 9.7 mg/dL (8.5-10.1); CHLORIDE 104 mmol/L (98-107); CO2 27 mmol/L (21-32); CREATININE 2.2 mg/dL (0.7-1.3); GLUCOSE 55 mg/dL (74-106); POTASSIUM 3.1 mmol/L (3.5-5.1); SODIUM 142 mmol/L (136-145)
[2017-04-24 16:05] LABS: ALBUMIN 3.6 g/dL (3.4-5.0); SGOT 36 U/L (15-37); SGPT 54 U/L (30-65); TOTAL BILIRUBIN 0.3 mg/dL (<0.1-1.0); TOTAL PROTEIN 7.5 g/dL (6.4-8.2); TROPONIN-I < 0.04 ng/mL (<0.06)
[2017-04-24 16:30] LABS: ATYPICAL LYMPHS 1 %
[2017-04-24 16:31] LABS: ABSOLUTE NEUTROPHILS 5.3 thou/uL (1.4-8.2)
[2017-04-24 18:23] VITALS: BP 136/52
[2017-04-24] MEDS ORDERED: AMLODIPINE BESY10 MG PO (19:06)
[2017-04-24] MEDS ORDERED: GLUCOTROL5 MG PO (19:07)
[2017-04-24] MEDS ORDERED: CLARITIN10 MG PO (19:07)
[2017-04-24] MEDS ORDERED: GEMFIBROZIL 60600 M1 PO (19:10)
[2017-04-24] MEDS ORDERED: METFORMIN HCL500 MG PO (19:11)
[2017-04-24 20:54] VITALS: BP 136/52
[2017-04-25 03:15] LABS: GLYCOHEMOGLOBIN (HGB A1C) 5.6 % (4.8-5.6)
[2017-04-25 04:01] LABS: HEMATOCRIT 35.8 % (42.0-52.0); HEMOGLOBIN 12.3 gm/dL (14.0-18.0); MCH 30.9 pg (26.0-34.0); MCHC 34.3 g/dL (28.0-37.0); MCV 90.2 fL (80.0-100.0); RBC 3.97 mil/uL (4.50-6.00); RDW 14.2 % (10.5-14.5); WBC 8.4 thou/uL (4.0-11.0)
[2017-04-25 04:10] VITALS: BP 156/90
[2017-04-25 04:35] LABS: ANION GAP 9 mmol/L (7-16); BUN 26 mg/dL (7-18); CALCIUM 9.1 mg/dL (8.5-10.1); CHLORIDE 107 mmol/L (98-107); CHOLESTEROL 148 mg/dL (<200); CO2 27 mmol/L (21-32); GLUCOSE 135 mg/dL (74-106); HDL CHOLESTEROL 28 mg/dL (>40); LDL CHOLESTEROL 92 mg/dL (<100); MAGNESIUM 1.8 mg/dL (1.8-2.4); POTASSIUM 3.5 mmol/L (3.5-5.1); SODIUM 143 mmol/L (136-145); TC:HDL 5.3 Ratio (Not establshd); TRIGLYCERIDE 141 mg/dL (<150); VLDL 28 mg/dL (<40)
[2017-04-25 04:37] LABS: SERUM ASSESSMENT Clear
[2017-04-25 08:00] VITALS: BP 137/82
[2017-04-25 13:20] VITALS: BP 146/77
== END 2017-04-25 13:59 | disposition home or self-care (01) | DRG 638 ==
LOC: ER 15:25 → EROBS 16:47 → 4E 16:47
PROVIDERS: Nurse Practitioner; Physician Assistant
DX: E11.649 Type 2 diabetes mellitus with hypoglycemia without coma (principal); I12.0 Hypertensive chronic kidney disease with stage 5 chronic kidney disease or end stage renal disease; E87.6 Hypokalemia; F31.9 Bipolar disorder, unspecified; F25.9 Schizoaffective disorder, unspecified; E11.22 Type 2 diabetes mellitus with diabetic chronic kidney disease; M10.9 Gout, unspecified; N18.3 Chronic kidney disease, stage 3 (moderate); I34.0 Nonrheumatic mitral (valve) insufficiency; Z79.899 Other long term (current) drug therapy; Z90.49 Acquired absence of other specified parts of digestive tract; Z87.891 Personal history of nicotine dependence; Z88.0 Allergy status to penicillin
CPT/HCPCS: 10183

== ENCOUNTER 2020-08-06 00:03 | Inpatient (IN) | payer OTHER ==
[2020-08-06] VITALS (19 sets, daily range): BP systolic 145–201; BP diastolic 87–135
[~2020-08-06] VITALS: Ht 180.3 cm; Wt 106.1 kg
--- NOTE | ~2020-08-06 | EMS ---
[address] [address] EMS Patient Care Report Name: JULITA LOMAX Room #: 203-P ADM IN M.R.#: [id number] Admission: 08/06/20 Attend Phys: Hermes Gordillo MD, FAAF Discharge: Date of : 43 Report #: [id number] THIS REPORT FOR: //name// Report Transmitted: 08/06/2020 00:59 EMS Care Summary [place], [place] Incident [id number] @ 08/05/2020 23:30 Incident Location [id number] [place], [place] [id number] Patient JULITA LOMAX Male, 75 Years 1945 Patient Address [address] [place], [place] [id number] Patient History Diabetes,Hypertension (HTN),Gastro-Esophageal Reflux Disease (GERD),Bipolar II Disorder,Schizophrenia,Gout,Constipation,Insomnia, Patient Allergies Penicillin allergy, Patient Medications Loratadine, Losartan, Hydrochlorothiazide (Hctz), Amitriptyline, Amlodipine, Clonidine, Glipizide, Allopurinol, Acetaminophen, Chief Complaint CHEST PAIN Disposition Transported Lights/Delong Dispatch Reason Chest Pain (Non-Traumatic) Transported To [facility] Narrative M36 DISPATCHED ON A CHEST PAIN. M36 ARRIVED TO FIND PT SEATED [place] [address] EMS Patient Care Report Name: JULITA LOMAX Room #: 203-P ADM IN M.R.#: [id number] Admission: 08/06/20 Attend Phys: Hermes Gordillo MD, FAAF Discharge: Date of : 43 Report #: [id number] BOARDING HOUSE. PT STATED CHEST PAIN CHIEF COMPLAINT. PT STATED HE WAS IN BED WHEN THE PAIN STARTED. PT RATED THE PAIN INITIALLY AT A 5/10. PT STATED HE GOT UP AND HAD THE CIGARETTE MAKING EXAMINER CALL 911. PT DENIED SHORTNESS OF BREATH. PT SKIN WARM, PINK AND DRY. PT SPOKE IN COMPLETE SENTENCES WITH NO INCREASED WORK OF BREATHING. PT VS TAKEN ON SCENE AND PT FOUND TO BE HYPERTENSIVE. PT STOOD AND PIVOTED TO STRETCHER. PT SECURED WITH SEATBELTS. PT VS TAKEN INCLUDING BLOOD GLUCOSE, TELEVISION CAMERA OPERATOR AND IV THERAPY ESTABLISHED. PT TREATED PER SUSPECTED STEMI PROTOCOL. PT RATED PAIN AFTER NITRO GIVEN SUBLINGUAL AT A 2/ 10. PT VS MONITORED EN ROUTE INCLUDING TELEVISION CAMERA OPERATOR. PT REPORT GIVEN. PT CARE AND BELONGINGS TRANSFERRED TO ER STAFF AT [facility] WITHOUT INCIDENT. M36 PLACED BACK IN SERVICE. Initial Vitals @23:47P: 117,R: 16,Pain: 3/10,GCS: 15,SpO2: 97,IL Suspected: true @23:53P: 86,R: 18,Pain: 2/10,GCS: 15,SpO2: 98,IL Suspected: true @23:59P: 89,R: 16,BP: 176/64,Pain: 2/10,GCS: 15,SpO2: 95,Revised Trauma: 12, @23:45P: 80,R: 16,BP: 196/136,Pain: 3/10,GCS: 15,Glucose: 161,CO: 2,SpO2: 97,Revised Trauma: 12, @23:52P: 82,R: 18,BP: 200/130,Pain: 3/10,GCS: 15,SpO2: 99,Revised Trauma: 12, @23:41P: 80,R: 16,BP: 212/140,Pain: 5/10,GCS: 15,CO: 1,SpO2: 96,Revised Trauma: 12,IL Suspected: true @00:02P: 78,R: 16,Pain: 2/10,GCS: 15,SpO2: 95,IL Suspected: true @23:54P: 86,R: 16,BP: 194/130,Pain: 2/10,GCS: 15,SpO2: 98,Revised Trauma: 12, Assessments @23:40MENTAL:Person Oriented,Time Oriented,Event Oriented,Place Oriented,SKIN:HEENT:LUNG SOUNDS:ABDOMEN:PELVIS//GI:EXTREMITIES:PULSE:Radial: 3+ Bounding,NEURO:@00:00MENTAL:Person Oriented,Event Oriented,Time Oriented,Place Oriented,SKIN:HEENT:LUNG SOUNDS:ABDOMEN:PELVIS//GI:EXTREMITIES:PULSE:Radial: 3+ Bounding,NEURO: Impression Chest Pain / Discomfort Procedures @23:5312-Lead ECGResponse: UnchangedSucceeded@23:4712-Lead ECGResponse: UnchangedSucceeded@00:0212-Lead ECGResponse: UnchangedSucceeded@23:39ALS AssessmentResponse: UnchangedSucceeded@PTAAspirin - 324 Milligrams (mg) - OralResponse: Improved@23:423-Lead ECGResponse: UnchangedSucceeded@23:48Saline Lock 10cc (18 ga) Site: Antecubital-RightResponse: UnchangedSucceeded@23:50Nitrostat - 0.4 Milligrams (mg) - SublingualResponse: Improved@23:55Nitrostat - 0.4 Milligrams (mg) - SublingualResponse: Improved Timeline [facility] [address] [place] [address] EMS Patient Care Report Name: JULITA LOMAX Room #: 203-P ADM IN M.R.#: [id number] Admission: 08/06/20 Attend Phys: Hermes Gordillo MD, FAAF Discharge: Date of : 43 Report #: [id number] DESPATCH CLERK,Aspirin - 324 Milligrams (mg) - Oral,Response: Improved 23:28,Call Received 23:28,Dispatch Notified 23:30,Dispatched 23:31,En Route 23:37,On Scene 23:39,At Patient 23:39,ALS Assessment,Response: UnchangedSucceeded, 23:41,BP: 212/140 M,PULSE: 80,RR: 16 R,SPO2: 96 Ox,ETCO2: ,BG: ,PAIN: 5,GCS: 15, 23:42,3-Lead ECG,Response: UnchangedSucceeded, 23:45,BP: 196/136 M,PULSE: 80,RR: 16 R,SPO2: 97 Ox,ETCO2: ,B,PAIN: 3,GCS: 15, 23:47,12-Lead ECG,Response: UnchangedSucceeded, 23:47,BP: / M,PULSE: 117,RR: 16 R,SPO2: 97 Ox,ETCO2: ,BG: ,PAIN: 3,GCS: 15, 23:48,Saline Lock 10cc 18 ga Site: Antecubital-Right,Response: UnchangedSucceeded, 23:50,Nitrostat - 0.4 Milligrams (mg) - Sublingual,Response: Improved 23:52,BP: 200/130 M,PULSE: 82,RR: 18 R,SPO2: 99 Ox,ETCO2: ,BG: ,PAIN: 3,GCS: 15, 23:53,12-Lead ECG,Response: UnchangedSucceeded, 23:53,BP: / M,PULSE: 86,RR: 18 R,SPO2: 98 Ox,ETCO2: ,BG: ,PAIN: 2,GCS: 15, 23:54,BP: 194/130 M,PULSE: 86,RR: 16 R,SPO2: 98 Ox,ETCO2: ,BG: ,PAIN: 2,GCS: 15, 23:55,Nitrostat - 0.4 Milligrams (mg) - Sublingual,Response: Improved 23:55,Depart Scene 23:59,BP: 176/64 M,PULSE: 89,RR: 16 R,SPO2: 95 Ox,ETCO2: ,BG: ,PAIN: 2,GCS: 15, 00:00,At Destination 00:02,12-Lead ECG,Response: UnchangedSucceeded, 00:02,BP: / M,PULSE: 78,RR: 16 R,SPO2: 95 Ox,ETCO2: ,BG: ,PAIN: 2,GCS: 15, 00:23,Call Closed Disclaimer v1.1 Copyright 2020 [employer] This EMS Care Summary contains data elements from the applicable legal record (which may be displayed differently). It is designed to provide pertinent information for the following purposes: continuity of care, clinical quality, and state data reporting. The complete legal record is available to ED staff and administrators of the receiving hospital in [employer] Patient Tracker. All data is provided "as is."
[~2020-08-06 00:03] MED LIST changes: +AMLODIPINE BESY10 MG PO; +CLARITIN10 MG PO; +GEMFIBROZIL 60600 M1 PO; +GLUCOTROL5 MG PO; +METFORMIN HCL500 MG PO
[2020-08-06 00:24] LABS: MCV 91.3 fL (80.0-100.0)
[2020-08-06 00:25] LABS: ABSOLUTE NEUTROPHILS 5.8 thou/uL (1.4-8.2); BASOPHILS 0.9 % (0.0-2.0); HEMATOCRIT 42.2 % (42.0-52.0); HEMOGLOBIN 14.4 gm/dL (14.0-18.0); LYMPHOCYTES 21.6 % (24.0-44.0); MCH 31.2 pg (26.0-34.0); MCHC 34.2 g/dL (28.0-37.0); PLATELET COUNT 312 thou/uL (150-400); POLYS 59.5 % (36.0-66.0); RBC 4.62 mil/uL (4.50-6.00); RDW 13.9 % (10.5-14.5); WBC 9.7 thou/uL (4.0-11.0)
[2020-08-06 00:32] LABS: CREATININE 3.3 mg/dL (0.7-1.3); POTASSIUM 3.1 mmol/L (3.5-5.1)
[2020-08-06 00:49] LABS: TROPONIN-I 1.6 ng/mL (<0.06)
[2020-08-06 00:52] LABS: APTT 31.4 Seconds (24.5-32.8); INR 1.01
[2020-08-06] MEDS ORDERED: FLOMAX0.4 MG PO ×2 (03:24)
[2020-08-06] MEDS ORDERED: OXYBUTYNIN 5 MG5 M2 PO ×2 (03:26)
[2020-08-06] MEDS ORDERED: AUSTEDO6 MG PO ×2 (03:27)
[2020-08-06] MEDS ORDERED: BENZONATATE200 MG PO ×2 (03:29)
[2020-08-06] MEDS ORDERED: SILTUSSIN DM C118 ML PO ×2 (03:30)
[2020-08-06] MEDS ORDERED: VENTOLIN HFA INH8 GM PO ×2 (03:40)
[2020-08-06] MEDS ORDERED: ARISTADA882 MG/3.2 IM ×2 (03:48)
[2020-08-06] MEDS ORDERED: AMITRIPTYLINE H10 M1 PO ×2 (03:49)
[2020-08-06] MEDS ORDERED: CATAPRES-TTS 31 EAC1 TRANSDERM ×2 (03:51)
[2020-08-06] MEDS ORDERED: COZAAR100 MG PO ×2 (03:54)
--- NOTE | 2020-08-06 04:43 | NUR ---
PATIENT WAS A NEW ADMISSION TO THE UNIT THIS SHIFT. HE ARRIVED VIA BED FROM THE SILK CREPE MACHINE OPERATOR POST CARDIAC CATH. PATIENT IS ALERT AND ORIENTED BUT FORGETFUL. HE IS ABLE TO PARTICIPATE IN HIS ADMISSION. PATIENTS BLOOD PRESSURE IS CHIEF CONCERN. 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 CATH SITE CLEAN, DRY, AND INTACT WITH NO EVIDENCE OF HEMATOMA. PATIENTS BEDREST IS OVER AT 0500. NURSE TO COMPLETE ADMISSION AND INITIATE PLAN OF CARE.
[2020-08-06 06:26] LABS: HEMATOCRIT 44.9 % (42.0-52.0); HEMOGLOBIN 15.5 gm/dL (14.0-18.0); MCH 32.1 pg (26.0-34.0); MCHC 34.5 g/dL (28.0-37.0); MCV 92.9 fL (80.0-100.0); RBC 4.83 mil/uL (4.50-6.00); RDW 14.1 % (10.5-14.5); WBC 12.8 thou/uL (4.0-11.0)
[2020-08-06 06:47] LABS: ALBUMIN 3.4 g/dL (3.4-5.0); CALCIUM 9.5 mg/dL (8.5-10.1); CREATININE 3.3 mg/dL (0.7-1.3); POTASSIUM 3.4 mmol/L (3.5-5.1); TOTAL BILIRUBIN 0.3 mg/dL (0.2-1.0); TOTAL PROTEIN 7.7 g/dL (6.4-8.2)
[2020-08-06 07:11] LABS: TROPONIN-I 141.17 ng/mL (<0.06)
--- NOTE | 2020-08-06 11:50 | CATHLAB ---
[facility] [address] [place] [address] INVASIVE PROCEDURE REPORT Name: JULITA LOMAX Room #: 203-P ADM IN M.R.#: [id number] Admission: 08/06/20 Attend Phys: Hermes Gordillo MD, FAAF Discharge: Date of : 43 Report #: [id number] THIS REPORT FOR: cc: Hermes Gordillo MD FAA FACE Hermes Gordillo MD FAA FACEP Alvaro Ley MD ~ APPROVED REPORT Study performed: 08/06/2020 00:32:10 Patient Details Patient Status: ED Room #: The patient is a 75 year-old male Event Personnel Alvaro Ley Pyrotechnist, Monserrat Alonso RN RN, Meghan Eric RTR, EMERGENCY VEHICLE TECHNICIAN Monitor, Niranjan Wilson RTR Scrub Procedures Performed Art Access - R femoral artery* Left Heart Cath w/or w/o Coronaries [id number] [facility] [address] Initial Mod Sed Same Phys/QHP Gr5y 120016 14842 Mod Sed Same Phys/QHP Ea 595061 [place] Revasc AMI Total/Sub Single LAD C9606 AMIREVSING Hemostasis w/ Mynx Indication STEMI (>0 to less than or equal to 6 hours), Dyspnea, Chest pain Risk Factors Obesity, Hypercholesterolemia, HypertensionRenal Failure, Diabetes Procedure Narrative The Right Groin^ was infiltrated with 1% Lidocaine subcutaneous anesthesia. A PINNACLE 6FR Sheath #[id number] sheath was inserted into the RFA^. Coronary angiography was performed using coronary diagnostic catheters. The right coronary system was accessed and visualized with a JR4 catheter. The left coronary system was accessed and visualized with a JL4 catheter. The left ventricle was accessed and visualized with a ANGLED PIGTAIL catheter. Left ventricular/Aortic Valve gradient assessed via catheter pullback. Pre-demployment femoral angiogram was performed . Closure device was deployed with a 6 Fr MYNXGRIP 6/7F #[id number]. The patient tolerated the procedure well and there were no complications associated with the [facility] [address] [place] [address] INVASIVE PROCEDURE REPORT Name: JULITA LOMAX Room #: 203-P [facility].#: [id number] Admission: 08/06/20 Attend Phys: Hermes Gordillo MD, Discharge: Date of : 43 Report #: [id number] procedure. There was no hematoma. Intraoperative Conscious Sedation Sedation start time: 01:01 Case end Time: 02:03 Fentanyl 50 mcg Versed 1 mg Fluoro Time: 11.46 minutes Dose: DAP 10742.00 cGycm2 1723 mGy Contrast Type and Amount: Visipaque 170 ml Coronary Angiography The patient's coronary anatomy is right dominant. Diagnostic Cath Left Main The left main artery is a large-caliber vessel with mild disease in the distal segment. LAD The LAD is a moderate-sized caliber vessel with mild to moderate disease proximally. There is a severe, subtotal obstruction with a filling defect in the mid LAD segment. There is SARINA II blood flow beyond this occlusion. Diagonal 1 Both the first and second diagonal arteries originate from the proximal LAD segment. Both vessels have severe occlusions in the proximal segment. After the obstruction, both vessels supply the anterolateral wall and terminates at the inferior wall. Circumflex The left circumflex artery has a total occlusion in the midsegment. There appears to be bridging collaterals supplying the distal marginal. Right Coronary The RCA is a dominant vessel with a moderate stenosis in the distal segment, 40%. R PDA This is a moderate-sized caliber vessel with a mild stenosis proximally, 30%. RPLV This is a small to moderate-sized caliber vessel, with no obstructive disease. Left Ventriculography Left Ventriculography was not performed. An LVEDP was measured and there is no gradient across outflow tract. A ventriculogram was not performed due to an elevated creatinine level. Hemodynamics The aortic pressure is 177/97 mmHg with a mean of 131 mmHg. The left ventricular pressure is 194/14 mmHg with a mean of mmHg. The left ventricular end diastolic pressure is 31 mmHg. [facility] [address] [place] [address] INVASIVE PROCEDURE REPORT Name: DAMIJULITA Room #: 203-P [facility] IN M.R.#: [id number] Admission: 08/06/20 Attend Phys: Hermes Gordillo MD, Discharge: Date of : 43 Report #: [id number] PCI Technique Lesion Percutaneous coronary intervention was performed on the proximal/mid left anterior descending artery segment. The lesion stenosis prior to intervention was 99% with SARINA 2 flow. A VISTA 6FR XB 3.5 #[id number] Guide Catheter was used to engage the ostium. A Luge Wire .014 x 182CM #[id number] Interventional Guidewire was used to cross the lesion. BALLOON DILATION A Balloon catheter Euphora RX 2.25 x 15 #[id number] was inserted and inflated up to 10.00atm for 13seconds. Additional Inflation: 10.00atm for 9seconds. STENT DEPLOYMENT A drug-eluting stent RESOLUTE CYNTHIA RX 2.75 X 22 #[id number] was inserted and inflated up to 14.00atm for 21seconds. POST STENT DEPLOYMENT BALLOON DILATION A Balloon catheter Euphora NC RX 2.75 x 15 #[id number] was inserted and inflated up to 18.00atm for 12seconds. Additional Inflation: 18.00atm for 10seconds. Final angiography reveals 0 % stenosis with SARINA 3 flow. Conclusion 1. Successful insertion of a drug-eluting stent into the subtotal occlusion in the proximal/mid LAD segment. 2. Severe occlusions involving the first and second diagonal arteries. Consider staged PCI. 3. There is a total occlusion in the mid segment of the left circumflex artery, with bridging collaterals to the distal marginal. 4. The RCA is a dominant vessel with a moderate distal stenosis. 5. Recommend dual antiplatelet therapy and aggressive risk factor management. <ELECTRONICALLY SIGNED> By: Alvaro Ley MD 08/06/20 1150 1150 1150 Alvaro Ley MD /INF
--- NOTE | 2020-08-06 16:36 | NUR ---
PATIENT HAS RESTED IN ROOM THROUGH THE DAY. HE IS QUITE PLEASANT WITH CARES .USES URINAL AND BLADDER SCAN SHOWS EMPTIED BLADDER POST VOID. HE DENIES ANY PAIN AT THIS TIME. WILL CONT WITP PLAN OF CARE.
[2020-08-06 16:47] LABS: CALCIUM 8.3 mg/dL (8.5-10.1); PHOSPHORUS 2.7 mg/dL (2.6-4.7)
[2020-08-06 16:49] LABS: POTASSIUM 2.8 mmol/L (3.5-5.1)
[2020-08-07 01:20] VITALS: BP 132/82
[2020-08-07 03:14] LABS: HEMATOCRIT 45.4 % (42.0-52.0); HEMOGLOBIN 15.8 gm/dL (14.0-18.0); MCH 31.7 pg (26.0-34.0); MCHC 34.8 g/dL (28.0-37.0); MCV 91.2 fL (80.0-100.0); PLATELET COUNT 316 thou/uL (150-400); RBC 4.98 mil/uL (4.50-6.00); RDW 13.9 % (10.5-14.5)
[2020-08-07 03:16] LABS: ALBUMIN 3.2 g/dL (3.4-5.0); CALCIUM 9.5 mg/dL (8.5-10.1); CREATININE 3.6 mg/dL (0.7-1.3); PHOSPHORUS 2.9 mg/dL (2.5-4.9); POTASSIUM 3.3 mmol/L (3.5-5.1)
[2020-08-07 03:27] LABS: WBC 33.2 thou/uL (4.0-11.0)
[2020-08-07 04:15] LABS: ABSOLUTE NEUTROPHILS 28.2 thou/uL (1.4-8.2); ATYPICAL LYMPHS 1 %
--- NOTE | 2020-08-07 04:40 | NUR ---
PT DR. MITCHELL TOOK TO THE HOGSHEAD FILLER DUE TO HIM COMPLAINING OF CHEST PAIN AT THE BEGINING OF THE SHIFT FOR APROXIMATELY 5 HOURS. EKG DONE BY RN AND NOTIFIED DR. MITCHELL OF PT'S CONDITION AND STATUS. TAKEN TO HOGSHEAD FILLER STENT X2. LEFT GROIN SITE IS CLEAN DRY AND INTACT NO HEMATOMA NOTED. PT IS ALERT AND ORIENTED X4. LUNGS ARE CLEAR ON 3 LITERS NASAL CANULA. PLEASANT. ABDOMEN IS ROUND AND SOFT. SCDS ON BILATERAL. AND VITALS FREQUENT AFTER CATH. CALL LIGHT WITHIN REACH IF NEEDS ASSISTANCE PER NURSING.
[2020-08-07 07:32] VITALS: BP 142/97
--- NOTE | 2020-08-07 07:45 | H ---
[facility] [place] [address] [address] HISTORY AND PHYSICAL Name: JULITA LOMAX Room #: 203-P ADM IN M.R.#: [id number] Admission: 08/06/20 Attend Phys: Hermes Gordillo MD, FAAF Discharge: Date of : 43 Report #: [id number] THIS REPORT FOR: cc: Hermes Gordillo MD, FAAFP FACEHermes Elise MD FAA FACEP Alexi Marshall DO ~ DATE OF SERVICE: 08/06/2020 HISTORY OF PRESENT ILLNESS: This 75-year-old white male was admitted with chest pain like a pressure in his chest, which woke him up, said it was not severe but was enough to make him quite nervous. No dyspnea, diaphoresis or vomiting. He came to the hospital, was found to have acute ST changes with elevated serum troponin, was taken urgently to the denture laboratory technician with Dr. Alvaro Ley who inserted a drug-eluting stent to the LAD. Findings were severe stenosis in the first and second diagonal arteries and 100% occlusion of the left circumflex with bridging collaterals. The patient tolerated the procedure well. He says he is not having any further chest pain. He did not have any chest pain in the past. PAST MEDICAL HISTORY: History of schizophrenia, bipolar disorder, has lived in [facility] for the last 10 years, has arthritis of the knee, status post left knee replacement, cholecystectomy, also history of diabetes type 2, gout, hypertension, chronic kidney disease, and developmental delay. MEDICATIONS ON ADMISSION: Allopurinol 300 mg daily, glipizide 2.5 mg daily, tamsulosin 0.4 mg daily, oxybutynin 5 mg b.i.d., Austedo 6 mg b.i.d., albuterol HFA 2 puffs q.i.d. p.r.n. shortness of breath, aripiprazole 882 mg IM probably monthly, amitriptyline 10 mg at bedtime, clonidine 0.3 patch weekly, losartan 100 mg daily, metoprolol succinate 50 mg b.i.d., paliperidone 156 mg IM monthly, ferrous sulfate 325 mg daily, omeprazole 20 mg daily, MiraLax 17 grams daily, Pristiq 50 mg daily, multivitamin 1 daily, amlodipine 10 mg daily, loratadine 10 mg daily, gemfibrozil 600 mg b.i.d., metformin 500 mg b.i.d. ALLERGIES: PENICILLIN (RASH) REVIEW OF SYSTEMS: He says he walks unassisted. No longer smokes cigarettes, has had all his teeth pulled, but he is able to eat whatever food he wants. Denies arthritic pain, fever, chills, shortness of breath, nausea or vomiting. PHYSICAL EXAMINATION: GENERAL: Pleasant, overweight white male with slight tongue smacking. VITAL SIGNS: BP 175/108, pulse 91, respiration 16, temperature afebrile. HEAD: No rash or trauma. EARS, NOSE, AND THROAT: Edentulous. No lesions. EYES: No icterus. NECK: Supple. LUNGS: Clear. Cough is dry. HEART: Rhythm regular, without murmur. ABDOMEN: Soft and [facility] [address] [place] [address] HISTORY AND PHYSICAL Name: JULITA LOMAX Room #: 203-P [facility] IN M.R.#: [id number] Admission: 08/06/20 Attend Phys: Hermes Gordillo MD, FAAF Discharge: Date of : 41 Report #: [id number] without mass or tenderness or guarding. EXTREMITIES: Trace edema. Palpable pulses in his feet. Feet are warm. No open sores. Sensory function is not tested on this exam. NEUROLOGIC: He has slight tongue smacking. He is very alert and oriented. Knows who is the president, says he voted by MAIL, knows the day and the date. Says he had his knee replaced because of pain, but did not know he had arthritis. Denies any knowledge of any history of kidney disease. LABORATORY DATA: Hemoglobin 14 grams, white count 9700. Sodium 143, potassium 3.4, CO2 of 24, BUN 33, creatinine 3.2, estimated GFR 18, glucose 155, calcium 9.5, AST 370, ALT 56. Troponin serially elevated to 140. Albumin is normal. Chest x-ray is negative. EKG shows a probable acute anterior wall infarct. IMPRESSION: 1. Acute ST-elevation myocardial infarction, anterior wall with drug-eluting stent to the LAD. 2. Possible acute kidney injury. 3. History of chronic kidney disease stage 3. 4. History of schizophrenia, bipolar disorder. 5. Mild dystonia of tongue. 6. History of gout. 7. Hypertension. PLAN: Post-stent orders per Cardiology, monitor kidney function, screening postvoid residual and renal sonogram, cardiac rehab. PROGNOSIS: Guarded. <ELECTRONICALLY SIGNED> By: Alexi Marshall DO 08/07/20 0745 1044 1318 Alexi Marshall DO /nt
--- NOTE | 2020-08-07 09:21 | HC ---
[facility] [address] CONSULTATION Name: JULITA LOMAX Room #: 203-P ADM IN M.R.#: [id number] Admission: 08/06/20 Attend Phys: Hermes Gordillo MD, FAAF Discharge: Date of : 43 Report #: [id number] THIS REPORT FOR: cc: Hermes Gordillo MD FAAFP FACEP Hermes Gordillo MD FAA FACEP Alvaro Ley MD ~ CARDIOLOGY CONSULTATION INDICATION: Chest pain. HISTORY OF PRESENT ILLNESS: This is a 75-year-old gentleman, residing at a long-term care facility, who complained of bilateral chest pains about an hour and half prior to presentation to the ER. He denies any prior history of CAD. He felt associated shortness of breath. There is no history of fever, chills, nausea or diarrhea. ECG reveals ST elevation in leads V2-V4 as well as I and aVL. PAST MEDICAL HISTORY: Hypertension, diabetes mellitus, gout, schizophrenia, bipolar disorder, GERD, insomnia. SOCIAL HISTORY: Denies tobacco use. Resides at a long-term care facility. ALLERGIES: PENICILLIN. MEDICATIONS: Include allopurinol, amlodipine 10 mg daily, clonidine 0.3 mg daily patch, glipizide 5 mg, hydrochlorothiazide half a tablet Friday through Friday; losartan 100 mg daily, and Ventolin. REVIEW OF SYSTEMS: A full 10-point review of systems performed. Only the pertinent positives and negatives are described in the HPI. PHYSICAL EXAMINATION: VITAL SIGNS: Blood pressure is 150/70, heart rate is 70 beats per minute. GENERAL APPEARANCE: This is a mildly overweight male in mild distress. HEENT: Normocephalic, atraumatic. Oral mucosa moist. NECK: Supple. LUNGS: CTA. CARDIAC: Regular rate and rhythm, S1, S2 positive. ABDOMEN: Protuberant, soft, nontender. EXTREMITIES: No cyanosis, trace edema. LABORATORY VALUES: ECG reveals sinus rhythm, PVCs, ST elevation in leads V2-V5, I and aVL. ASSESSMENT AND PLAN: 1. Rule out anterolateral myocardial infarction. Other considerations include [facility] [address] [place] [address] CONSULTATION Name: DAMIJULITA KEARNSEN Room #: 203-P [facility] IN .R.#: [id number] Admission: 08/06/20 Attend Phys: Hermes Gordillo MD, FAAF Discharge: Date of : 41 Report #: [id number] early repolarization versus pericarditis. The patient continues to have chest discomfort. We will proceed with emergent cardiac catheterization. This was explained in detail to the patient. 2. Hypertension, continue medications including amlodipine and losartan. 3. Diabetes mellitus, continue on hypoglycemics and check fingersticks. 4. Hypercholesterolemia, will need statin therapy. <ELECTRONICALLY SIGNED> By: Alvaro Ley MD 08/07/20 0921 0040 0138 Alvaro Ley MD /barb
--- NOTE | 2020-08-07 09:34 | EKG ---
[address] [place] [address] ELECTROCARDIOGRAM REPORT Name: JULITA LOMAX Room #: 203-P ADM IN M.R.#: [id number] Admission: 08/06/20 Attend Phys: Hermes Gordillo MD, FAAF Discharge: Date of : 43 Report #: [id number] [facility] ED Test Date: 2020-08-06 Test Time: 00:06:32 Pat Name: JULITA LOMAX Department: Room: 203 Gender: M It Infrastructure Consultant: RINA : 1945 Requested By: Maddison Jaramillo Order Number: [id number] MD: Yifan Manley Measurements Intervals [place] Rate: 73 P: 8 MD: 247 QRS: -24 QRSD: 102 T: 3 QT: 432 QTc: 476 Interpretive Statements Sinus rhythm Occasional premature ventricular complexes Prolonged MD interval Borderline left axis deviation Anterolateral infarct, acute Baseline wander in lead(s) II,III,aVF Compared to ECG 04/24/2017 15:43:29 Ventricular premature complex(es) now present Myocardial infarct finding now present Electronically Signed On 08-07-2020 9:34:03 CDT by Yifan Manley [email or web address] <ELECTRONICALLY SIGNED> By: Yifan Manley MD, FAC 08/07/20 0934 0006 0006 Yifan Manley MD, FAC /EPI
--- NOTE | 2020-08-07 09:37 | EKG ---
[place] [address] [facility] [place] [address] ELECTROCARDIOGRAM REPORT Name: JULITA LOMAX Room #: 203- ADM IN M.R.#: [id number] Admission: 08/06/20 Attend Phys: Hermes Gordillo MD, FAAF Discharge: Date of : 41 Report #: [id number] [facility] Test Date: 2020-08-06 Test Time: 08:04:03 Pat Name: JULITA LOMAX Department: Room: 203 P Gender: M Electrical And Instrument Engineer: ANTHONY : 1945 Requested By: Alvaro Ley Order Number: [id number] MD: Yifan Manley Measurements Intervals [place] Rate: 98 P: 0 PA: 247 QRS: 19 QRSD: 129 T: 6 QT: 353 QTc: 451 Interpretive Statements Sinus rhythm Prolonged PA interval Nonspecific intraventricular conduction delay Anterior lateral infarct, recent Compared to ECG 08/06/2020 00:06:32 Intraventricular conduction delay now present Ventricular premature complex(es) no longer present Anterolateral injury pattern is less pronounced Electronically Signed On 08-07-2020 9:37:07 CDT by Yifan Manley [email or web address] <ELECTRONICALLY SIGNED> By: Yifan Manley MD, FACC 08/07/20 0937 0804 0804 Yifan Manley MD, [facility] /EPI
--- NOTE | 2020-08-07 09:40 | 2DMMODE ---
[facility] [place] [address] 2 D/M-MODE ECHOCARDIOGRAM Name: JULITA LOMAX Room #: 203-P ADM IN M.R.#: [id number] Admission: 08/06/20 Attend Phys: Hermes Gordillo MD, FAAF Discharge: Date of : 41 Report #: [id number] THIS REPORT FOR: cc: Hermes Gordillo MD, FAAFP, FACEP, Douglas MD FAAFP FACEP Park, Jin S. MD ~ APPROVED REPORT Study performed: 08/07/2020 08:09:55 EXAM: Comprehensive 2D, Doppler, and color-flow Echocardiogram Patient Location: Bedside Room #: 203 Status: routine BSA: 2.20 HR: 111 bpm BP: 117/75 mmHg Rhythm: Tachycardia Other Information Study Quality: Adequate Indications Diabetes CAD Chest Pain Hypertension/HDD STEMI 2D Dimensions IVSd: 15.24 (7-11mm) LVOT Diam: 22.10 (18-24mm) LVDd: 30.42 mm PWd: 15.07 (7-11mm) Ascending Ao: 30.44 (22-36mm) LVDs: 22.53 (25-40mm) Left Atrium: 43.90 (27-40mm) Aortic Root: 30.23 mm IVC: 22.00 mm Aortic Valve AoV Peak Alberto.: 1.49 m/s AO Peak Gr.: 8.82 mmHg LVOT Max P.79 mmHg LVOT Max V: 0.67 m/s BRANDON Vmax: 1.73 cm2 Pulmonary Valve [facility] [place] [address] [place] [address] 2 D/M-MODE ECHOCARDIOGRAM Name: JULITA LOMAX Room #: 203-P ADM IN M.R.#: [id number] Admission: 08/06/20 Attend Phys: Hermes Gordillo MD, Discharge: Date of : 41 Report #: [id number] PV Peak Alberto.: 1.19 m/s PV Peak Gr.: 5.68 mmHg Left Ventricle The left ventricle is normal size. There is hypokinesis in the mid to apical anterior wall. Mild concentric left ventricular hypertrophy. Left ventricular systolic function is mild to moderately decreased. LVEF is 40-45%. This study is not technically sufficient to allow evaluation of the LV diastolic function. Right Ventricle The right ventricle is normal size. The right ventricular systolic function is normal. Atria The left atrium size is normal. The right atrium size is normal. Aortic Valve The aortic valve is normal in structure. No aortic regurgitation is present. There is no aortic valvular stenosis. Mitral Valve The mitral valve is normal in structure. There is no mitral valve regurgitation noted. No evidence of mitral valve stenosis. Tricuspid Valve The tricuspid valve is normal in structure. There is no tricuspid valve regurgitation noted. Pulmonic Valve The pulmonary valve is normal in structure. There is no pulmonic valvular regurgitation. Great Vessels The aortic root is normal in size. IVC is dilated and collapses >50% with inspiration. Pericardium Small pericardial effusion. <Conclusion> The left ventricle is normal size. Mild concentric left ventricular hypertrophy. Left ventricular systolic function is mild to moderately decreased. LVEF is 40-45%. [facility] [address] [place] [address] 2 D/M-MODE ECHOCARDIOGRAM Name: JULITA LOMAX Room #: 203-P ADM IN .R.#: [id number] Admission: 08/06/20 Attend Phys: Hermes Gordillo MD, Discharge: Date of : 41 Report #: [id number] The right ventricle is normal size. The left atrium size is normal. The aortic valve is normal in structure. There is no mitral valve regurgitation noted. <ELECTRONICALLY SIGNED> By: Alvaro Ley MD 08/07/20939 9 9 Alvaro Ley MD /INF
--- NOTE | 2020-08-07 09:41 | EKG ---
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: [facility] : 1945 Requested By: Alvaro Ley Order Number: [id number] MD: Yifan Manley Measurements Intervals [place] Rate: 106 P: 0 WA: 216 QRS: 75 QRSD: 100 T: 20 QT: 328 QTc: 436 Interpretive Statements Sinus tachycardia Prolonged [place] interval Anterolateral infarct, recent Compared to ECG 08/06/2020 08:04:03 No significant change was found Electronically Signed On 08-07-2020 9:41:14 CDT by Yifan Manley [email or web address] <ELECTRONICALLY SIGNED> By: Yifan Manley MD, [facility] 08/07/20 0941 42 42 Yifan Manley MD, FACC /EPI
--- NOTE | 2020-08-07 09:43 | EKG ---
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 : 1945 Requested By: Alvaro Ley Order Number: [id number] MD: Yifan Manley Measurements Intervals [place] Rate: 103 P: 49 NM: 193 QRS: 65 QRSD: 92 T: 55 QT: 334 QTc: 437 Interpretive Statements Sinus tachycardia Atrial premature complex Anterolateral infarct, acute (LAD) Compared to ECG 08/06/2020 19:43:18 Atrial premature complex(es) now present Injury pattern is more pronounced Electronically Signed On 08-07-2020 9:43:44 CDT by Yifan Manley [email or web address] <ELECTRONICALLY SIGNED> By: Yifan Manley MD, [facility] 08/07/20 0943 0743 0743 Yifan Manley MD, [facility] /EPI
[2020-08-07 11:16] VITALS: BP 129/66
--- NOTE | 2020-08-07 14:36 | NUR ---
ASSESSMENT: CM REVIEWED CHART AND SPOKE WITH PATIENT. PT WAS ADMITTED DUE TO CHEST PAIN. PT HAD STEMI AND EMERGENT CATH. PT IS FROM [facility] WHERE HE REPORTS HE HAS LIVED FOR YEARS. PT HAS HX OF SCHIZOPHRENIA AND BIPOLAR. CM ATTEMPTED TO REACH PATIENTS SISTER DESTINY WHO IS LISTED DPOA [phone] BUT UNABLE TO REACH AND VM WAS LEFT. PT REPORTS THAT HE IS NORMALLY INDEPENDENT AT THE ASSISTED LIVING FACILITY. CM ATTEMPTED TO REACH BEAUTIFUL SAVIOR TO GATHER MORE COLLATERAL INFORMATION BUT UNABLE TO CONTACT THE FACILITY AT THIS TIME. CM WILL ATTEMPT TO CONTINUE TO FIND A WORKING NUMBER FOR FACILITY. PLANS ARE LIKELY FOR PATIENT TO RETURN ONCE STABLE. CM FAXED CLINICAL UPDATES TO FACILITY.
--- NOTE | 2020-08-07 15:38 | CATHLAB ---
[facility] [place] [address] [address] INVASIVE PROCEDURE REPORT Name: JULITA LOMAX Room #: 203-P ADM IN M.R.#: [id number] Admission: 08/06/20 Attend Phys: Hermes Gordillo MD, FAAF Discharge: Date of : 41 Report #: [id number] THIS REPORT FOR: cc: Hermes Gordillo MD FAA FACE Hermes Gordillo MD FAA FACEP Alvaro Ley MD ~ APPROVED REPORT Study performed: 08/06/2020 20:39:19 Patient Details Patient Status: In-Patient Room #: 203 The patient is a 75 year-old male Event Personnel Alvaro Ley Supervisor Ovens, Monserrat Alonso RN RN, Niranjan Wilson RTR Monitor, Meghan Eric RTR, POSTAL MAIL CARRIER Scrub Procedures Performed Art Access - L femoral artery* 28421 Initial Mod Sed Same Phys/QHP Gr5y 534818 12285 Mod Sed Same Phys/QHP Ea 010550 [place] Place w/wo Plasty Single DIAG 125473 Hemostasis w/ Mynx Indication Abnormal ECG, Dyspnea, Unstable angina , Chest pain, The patient recently presented with an anterior wall OR undergoing stent placement to the LAD. While recovering in the CCU, he developed substernal chest pains. ECG revealed ST elevation in the high lateral leads. 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 Risk Factors Arterial Hypertension, Hypercholesterolemia, Coronary Artery DiseaseHypertensionRenal Failure Previous Procedures/Diagnoses Previous PCI, Previous OR Procedure Narrative The LFA^ was infiltrated with 1% Lidocaine subcutaneous anesthesia. A PINNACLE 6FR TIF Sheath #[id number] sheath was inserted into the RFA^. Coronary angiography was performed using coronary diagnostic catheters. The left coronary system was accessed and visualized with a VISTA 6FR XB 3.5 #[id number] catheter. Pre-demployment femoral [facility] [place] [address] INVASIVE PROCEDURE REPORT Name: DAMIJULITA KEARNSEN Room #: 203-P [facility] IN M.R.#: [id number] Admission: 08/06/20 Attend Phys: Hermes Gordillo MD, Discharge: Date of : 41 Report #: [id number] angiogram was performed . Closure device was deployed with a 6 Fr 6FR MYNX DREDGE BOAT ENGINEER. The patient tolerated the procedure well and there were no complications associated with the procedure. There was no hematoma. Intraoperative Conscious Sedation Sedation start time: 2109 Case end Time: 2207 Fentanyl 50 mcg Versed 1 mg Fluoro Time: 14.29 minutes Dose: DAP 70362.70 cGycm2 3459 mGy Contrast Type and Amount: Visipaque 205 ml Diagnostic Cath LAD The stent in the mid LAD segment is widely patent. There is mild disease in the proximal segment. There are 2 moderate-sized diagonal arteries, both emanating from the proximal LAD segment. Both vessels have severe diffuse proximal occlusions. Circumflex The left circumflex artery has a total occlusion in the midsegment, the distal marginal vessels fills via bridging collaterals. Hemodynamics The aortic pressure is 157/97 mmHg with a mean of 125 mmHg. PCI Technique Lesion Percutaneous coronary intervention was performed on the first diagnonal branch segment. The lesion stenosis prior to intervention was 95% with SARINA 3 flow. A VISTA 6FR XB 3.5 #[id number] Guide Catheter was used to engage the ostium. A Luge Wire .014 x 182CM #[id number] Interventional Guidewire was used to cross the lesion. BALLOON DILATION A Balloon catheter TREK RX 2.25 X 15 #[id number] was inserted and inflated up to 16.00atm for 19seconds. Additional Inflation: 14.00atm for 12seconds. Additional Inflation: 14.00atm for 13seconds. Additional Inflation: 16 cee for 17 sec. STENT DEPLOYMENT A drug-eluting stent RESOLUTE CYNTHIA RX 2.5 X 18 #[id number] was inserted and inflated up to 18.00atm for 27seconds. POST STENT DEPLOYMENT BALLOON DILATION A Balloon catheter Euphora NC RX 2.75 x 15 #[id number] was inserted and inflated up to 16atm for 12seconds. [address] [address] INVASIVE PROCEDURE REPORT Name: JULITA LOMAX Room #: 203-P [facility] IN .R.#: [id number] Admission: 08/06/20 Attend Phys: Hermes Gordillo MD, Discharge: Date of : 41 Report #: [id number] Final angiography reveals 0 % stenosis with SARINA 3 flow. PCI Technique Lesion 2 Percutaneous Coronary Intervention was performed on the second diagnonal branch segment. The lesion stenosis prior to intervention was 95% with SARINA 3 flow. A VISTA 6FR XB 3.5 #[id number] Guide Catheter was used to engage the ostium. A Luge Wire .014 x 182CM #[id number] Interventional Guidewire was used to cross the lesion. Balloon Dilation A Balloon catheter TREK RX 2.25 X 15 #[id number] was inserted and inflated up to 14.00atm for 12seconds. Additional Inflation: 10.00atm for 8seconds. Additional Inflation: 14.00atm for 10seconds. Additonal Inflation: 14 cee for 17 sec. Additonal Inflation: 14 cee for 11 sec. Additonal Inflation: 16 cee for 13 sec. Stent Deployment A drug-eluting stent RESOLUTE CYNTHIA RX 2.5 X 22 #[id number] was inserted and inflated up to 16atm for 17seconds. Additional Inflation: 14.00atm for 13seconds. Final angiography reveals 0 % stenosis with SARINA 3 flow. Conclusion 1. Successful insertion of a drug-eluting stent into the first diagonal artery. 2. Successful insertion of a drug-eluting stent into the second diagonal artery. 3. The stent in the mid LAD segment is widely patent. 4. Recommend dual antiplatelet therapy and aggressive risk factor management. <ELECTRONICALLY SIGNED> By: Alvaro Ley MD 08/07/20 1538 1538 1538 Alvaro Ley MD /INF
[2020-08-07 15:49] VITALS: BP 136/69
[2020-08-07 16:13] LABS: URINE BILIRUBIN NEGATIVE (Negative); URINE BLOOD 1+ (Negative); URINE CLARITY CLEAR; URINE COLOR YELLOW; URINE GLUCOSE-RANDOM* NEGATIVE (Negative); URINE KETONES TRACE (Negative); URINE LEUKOCYTES NEGATIVE (Negative); URINE NITRITE NEGATIVE (Negative); URINE PROTEIN (DIPSTICK) 3+ (Negative); URINE UROBILINOGEN 0.2 E.U./dl (0.2-1.0)
[2020-08-07 16:18] LABS: URINE CREATININE-RANDOM* 163.4 mg/dL
[2020-08-07 16:29] LABS: HEMATOCRIT 40.6 % (42.0-52.0); HEMOGLOBIN 13.4 gm/dL (14.0-18.0); MCH 30.1 pg (26.0-34.0); MCHC 32.9 g/dL (28.0-37.0); MCV 91.5 fL (80.0-100.0); RBC 4.44 mil/uL (4.50-6.00); RDW 13.9 % (10.5-14.5); WBC 31.6 thou/uL (4.0-11.0)
[2020-08-07 16:30] LABS: BACTERIA 1-9 Few /HPF (None Seen); CRYSTALS None Seen /LPF (None Seen); HYALINE CASTS 0-3 Few /LPF (None Seen); SQUAMOUS 0-3 Few /LPF (0-3); URINE RBC 0-2 Rare /HPF (0-2); URINE WBC 0-5 Rare /HPF (0-5)
--- NOTE | 2020-08-07 18:02 | NUR ---
RECEIVED PT'S CARE AROUND 0710; PT. ALERT; SR ON THE MONITOR; DURING AM ASSESSMENT PT. AOX4; NO C/O PAIN; EDUCATED ABOUT CALLING IF FEELING CP; ST. UNDERSTADING; AM MEDICATIONS GIVEN; AMBULATED WITH CARDIOLOGY REHAB NURSE; TOLERATED WELL; REFUSED TO GET UP TO CHAIR DURING THE DAY; NOTICED ELEVATED WBC; DR. MAR NOTIFIED; ORDERS RECEIVED; URINE SAMPLE COLLECTED; MONITORING; VS WNL; ASSESSMENT CHARGED; FOLLOWING POC; WILL PASS ON REPORT;
[2020-08-07 20:46] VITALS: BP 116/72
[2020-08-08 01:14] VITALS: BP 116/59
[2020-08-08 02:06] LABS: GLYCOHEMOGLOBIN (HGB A1C) 6.3 % (4.8-5.6)
[2020-08-08 04:10] VITALS: BP 130/64
[2020-08-08 05:02] LABS: MCHC 32.5 g/dL (28.0-37.0); MCV 92.3 fL (80.0-100.0); RBC 4.01 mil/uL (4.50-6.00); RDW 14.1 % (10.5-14.5); WBC 25.2 thou/uL (4.0-11.0)
--- NOTE | 2020-08-08 05:19 | NUR ---
PT CARE ASSUMMED AT CHANGE OF SHIFT, PT IS ALERT AND ORIENTED, DENIES CHEST PAIN OR SOB, ASSESSMENTS CHARTED, SR ON TELE WITH BBB/1DAVB, NO NEEDS AT THIS TIME, WILL CONTINUE TO MONITOR AND FOLLOW POC
[2020-08-08 05:53] LABS: ALBUMIN 2.7 g/dL (3.4-5.0); CALCIUM 8.7 mg/dL (8.5-10.1); CREATININE 4.4 mg/dL (0.7-1.3); POTASSIUM 3.4 mmol/L (3.5-5.1); TOTAL BILIRUBIN 0.6 mg/dL (0.2-1.0); TOTAL PROTEIN 5.7 g/dL (6.4-8.2)
[2020-08-08 07:30] VITALS: BP 101/67
--- NOTE | 2020-08-08 09:24 | EKG ---
[address] [place] [address] ELECTROCARDIOGRAM REPORT Name: JULITA LOMAX Room #: 203- ADM IN M.R.#: [id number] Admission: 08/06/20 Attend Phys: Hermes Gordillo MD, FAAF Discharge: Date of : 41 Report #: [id number] 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 08/08/20 0924 35 35 Yifan Manley MD, [facility] /EPI
[2020-08-08 11:12] VITALS: BP 110/53
--- NOTE | 2020-08-08 12:20 | NUR ---
on-going assessment: PTS CREATININE AND WBC STILL ELEVATED. CONTINUE CURRENT CARE. CM FAXED UPDATED CLINIACL TO [facility] FAX [phone]. CM UPDATED [facility] AT [facility]. CM WILL CONTINUE TO FOLLOW TO ASSIST NEEDED.
[2020-08-08 14:48] VITALS: BP 109/47
--- NOTE | 2020-08-08 19:57 | NUR ---
RECEIVED PT'S CARE AROUND 0720; PT. ON BED; ALERT; SR ON THE MONITOR; DURING AM ASSESSMENT PT. AOX4; NO C/O PAIN; AM MEDICATIONS GIVEN; REMAINED ABOUT CALLING BEFORE GETTING UP FROM BED; ST. UNDERSTANDING; NEEDS TO BE REMAINED; WORKED WITH PT AND OT; TOLERATED WELL; ST CONSULTED DUE TO COUGHING AFTER DRINKING SEVERAL TIMES; PER ST NO STRAWS; DURING THE AFTERNOON C/O SOB; 02 SAT ABOVE 90%; DR. MAR NOTIFIED; ORDERS RECEIVED; PASSED ON REPORT; ASSESSMENT CHARGED; FOLLOWING PO; PASSED ON REPORT;
[2020-08-08 20:15] VITALS: BP 92/56
[2020-08-09 00:33] VITALS: BP 114/60
[2020-08-09 04:40] VITALS: BP 119/63
--- NOTE | 2020-08-09 05:42 | NUR ---
ASSUMED PT CARE AT CHNAGE OF SHIFT, PT IS ALERT AND ORIENTED, FORGETFUL AT TIMES, SR ON THE MONITOR, DENIES CHEST PAIN, STILL SOB, ONETIME DOSE OF LASIX GIVEN ORDERED, SLEPT ON AND OFF, CHEST XRAY THIS AM, WILL PASS ON REPORT
[2020-08-09 05:55] LABS: HEMATOCRIT 34.8 % (42.0-52.0); HEMOGLOBIN 11.5 gm/dL (14.0-18.0); MCH 30.6 pg (26.0-34.0); MCHC 33.1 g/dL (28.0-37.0); MCV 92.2 fL (80.0-100.0); RBC 3.78 mil/uL (4.50-6.00); RDW 13.8 % (10.5-14.5); WBC 16.3 thou/uL (4.0-11.0)
[2020-08-09 06:25] LABS: ALBUMIN 2.4 g/dL (3.4-5.0); CALCIUM 8.5 mg/dL (8.5-10.1); POTASSIUM 3.1 mmol/L (3.5-5.1); TOTAL BILIRUBIN 0.4 mg/dL (0.2-1.0); TOTAL PROTEIN 6.5 g/dL (6.4-8.2)
[2020-08-09 06:28] LABS: CREATININE 5.4 mg/dL (0.7-1.3)
[2020-08-09 07:15] VITALS: BP 122/97
--- NOTE | 2020-08-09 08:00 | NUR ---
ASSUMED PT CARE AT 0700. ASSESSMENT PERFORMED CHARTED. VSS. WILL CONTINUE TO MONITOR AND FOLLOW POC. PT DOES NOT VOICE ANY CONCERNS AT THIS TIME.
--- NOTE | 2020-08-09 08:24 | NUR ---
inserted urinary catheter per nephrology verbal order. pt tolerated procedure well. pts bladder scan read greater than 365, post amato insertion pt voided 300mls of clear, yellow urine.
[2020-08-09 11:41] VITALS: BP 102/47
--- NOTE | 2020-08-09 11:44 | NUR ---
PT SITTING UP IN THE CHAIR FOLLOWING A WALK WITH PT. PT DENIES PAIN AT THIS TIME. ASSESSMENT UNCHANGED. VSS. WILL CONTINUE TO MONITOR AND FOLLOW POC.
[2020-08-09 14:59] VITALS: BP 95/60
[2020-08-09 20:30] VITALS: BP 110/90
[2020-08-10 04:45] VITALS: BP 124/52
[2020-08-10 05:28] LABS: ABSOLUTE NEUTROPHILS 9.8 thou/uL (1.4-8.2); BASOPHILS 0.7 % (0.0-2.0); EOSINOPHILS 5.9 % (0.0-3.0); HEMATOCRIT 34.6 % (42.0-52.0); HEMOGLOBIN 11.4 gm/dL (14.0-18.0); LYMPHOCYTES 10.1 % (24.0-44.0); MCH 30.7 pg (26.0-34.0); MONOCYTES 9.3 % (1.0-8.0); PLATELET COUNT 294 thou/uL (150-400); RBC 3.72 mil/uL (4.50-6.00); RDW 14.3 % (10.5-14.5); WBC 13.2 thou/uL (4.0-11.0)
[2020-08-10 05:31] LABS: URINE BILIRUBIN NEGATIVE (Negative); URINE BLOOD 3+ (Negative); URINE CLARITY CLEAR; URINE COLOR YELLOW; URINE GLUCOSE-RANDOM* NEGATIVE (Negative); URINE KETONES NEGATIVE (Negative); URINE LEUKOCYTES-REFLEX TRACE (Negative); URINE NITRITE-REFLEX NEGATIVE (Negative); URINE PROTEIN (DIPSTICK) 2+ (Negative); URINE UROBILINOGEN 0.2 E.U./dl (0.2-1.0)
[2020-08-10 05:41] LABS: BACTERIA-REFLEX 1-9 Few /HPF (None Seen); CASTS None Seen /LPF (None Seen); CRYSTALS None Seen /LPF (None Seen); MUCUS 0-3 Light strn/LPF (None Seen); SQUAMOUS 0-3 Few /LPF (0-3); URINE WBC-REFLEX 6-15 Few /HPF (0-5); WBC CLUMPS Few (None Seen)
[2020-08-10 05:50] LABS: CALCIUM 8.3 mg/dL (8.5-10.1); CREATININE 5.5 mg/dL (0.7-1.3); POTASSIUM 3.2 mmol/L (3.5-5.1)
[2020-08-10 07:30] VITALS: BP 130/62
[2020-08-10 11:29] VITALS: BP 123/100
[2020-08-10 15:28] VITALS: BP 141/70
[2020-08-10 19:12] VITALS: BP 120/72
[2020-08-11 03:50] VITALS: BP 124/62
[2020-08-11 05:20] LABS: ALBUMIN 2.4 g/dL (3.4-5.0); CALCIUM 7.9 mg/dL (8.5-10.1); PHOSPHORUS 4.7 mg/dL (2.5-4.9); POTASSIUM 3.5 mmol/L (3.5-5.1)
[2020-08-11 07:11] VITALS: BP 146/73
[2020-08-11 11:17] VITALS: BP 109/58
[2020-08-11 15:08] VITALS: BP 132/77
--- NOTE | 2020-08-11 17:04 | NUR ---
No weekend dc anticipated due to elev cre. Improved to 5 today. Renal following. Pt working with PT. OT dc'd. Dc plan is to return to his senior care [facility] when medically stable. Will follow.
[2020-08-11 18:56] VITALS: BP 131/72
[2020-08-12 04:10] VITALS: BP 150/72
[2020-08-12 04:52] LABS: ABSOLUTE NEUTROPHILS 9.2 thou/uL (1.4-8.2); BASOPHILS 0.9 % (0.0-2.0); EOSINOPHILS 5.7 % (0.0-3.0); HEMATOCRIT 34.2 % (42.0-52.0); HEMOGLOBIN 11.2 gm/dL (14.0-18.0); LYMPHOCYTES 11.7 % (24.0-44.0); MCHC 32.7 g/dL (28.0-37.0); MCV 91.9 fL (80.0-100.0); MONOCYTES 9.8 % (1.0-8.0); PLATELET COUNT 361 thou/uL (150-400); POLYS 71.9 % (36.0-66.0); RBC 3.72 mil/uL (4.50-6.00); RDW 14.1 % (10.5-14.5); WBC 12.7 thou/uL (4.0-11.0)
[2020-08-12 04:58] LABS: ALBUMIN 2.3 g/dL (3.4-5.0); CALCIUM 8.3 mg/dL (8.5-10.1); CREATININE 4.3 mg/dL (0.7-1.3); PHOSPHORUS 4.6 mg/dL (2.5-4.9); POTASSIUM 3.5 mmol/L (3.5-5.1); TOTAL BILIRUBIN 0.4 mg/dL (0.2-1.0); TOTAL PROTEIN 6.5 g/dL (6.4-8.2)
--- NOTE | 2020-08-12 06:43 | NUR ---
pt resting quietly thru the noc, labs improving this am, no c/o pain, impulsive this am trying to get out of bed, vss, will con't to monitor per ppoc.
[2020-08-12 07:15] VITALS: BP 139/74
[2020-08-12 11:20] VITALS: BP 133/61
--- NOTE | 2020-08-12 13:48 | NUR ---
ASSUMED CARE SHIFT CHANGE. ASSESSMENTS CHARTED.MEDS GIVEN. VSS. DENIES CP, SOB. UP SBA TOLERATING WELL. REPORT PASSED TO FABIOLA MOSQUEDA.
[2020-08-12 16:30] VITALS: BP 146/88
--- NOTE | 2020-08-12 16:43 | NUR ---
ASSESSMENT CHARTED- MEDS PER MAR - ACCUCHECKS WITH NO COVERAGE CHARTED. PT UP TO THE CHAIR SANTO WELL. SANTO DIET AND FLUIDS WITH NO CO'S OF NAUSEA. NO CO;S OF PAIN. STATES COMFORTABLE AT THE PRESENT TIME.
[2020-08-12] MEDS ORDERED: CLOPIDOGREL75 MG PO ×2 (17:07)
[2020-08-12] MEDS ORDERED: HYDRALAZINE 5050 MG PO ×2 (17:07)
[2020-08-12] MEDS ORDERED: ASPIRIN325 PO ×2 (17:07)
[2020-08-12] MEDS ORDERED: LIPITOR40 MG PO ×2 (17:07)
[2020-08-12] MEDS ORDERED: CARVEDILOL25 MG PO ×2 (17:07)
[2020-08-12 20:12] VITALS: BP 144/74
--- NOTE | 2020-08-13 04:23 | NUR ---
ASSESSMENT CHARTED, VSS, NO C/O PAIN, ROPER WITH YELLOW URINE OUT PUT, PT SAT UP IN CHAIR AT START OF SHIFT FOR 2 HOURS BEFORE GOING BACK TO BED. WILL CON'T TO MONITOR PER PPOC.
[2020-08-13 04:47] LABS: ALBUMIN 2.2 g/dL (3.4-5.0); CALCIUM 8.5 mg/dL (8.5-10.1); CREATININE 3.9 mg/dL (0.7-1.3); PHOSPHORUS 4.4 mg/dL (2.5-4.9); POTASSIUM 3.5 mmol/L (3.5-5.1)
[2020-08-13 05:02] VITALS: BP 154/80
[2020-08-13 08:00] VITALS: BP 161/92
[2020-08-13 12:00] VITALS: BP 124/78
[2020-08-13 15:43] VITALS: BP 124/78
--- NOTE | 2020-08-13 16:41 | NUR ---
ASSESSMENT CHARTED - MEDS PER JUN - NO CO'S OF PAIN OR NAUSEA. SANTO DIET AND FLUIDS. PT WITH ROPER REMOVED THIS AM - HAS VOIDED POST REMOVAL. HAS BEEN UP TOT HE CHAIR AND IN BED - REMAINS IMPULSIVE. SEEN BY DOCTOR THIS AFTERNOON =- PATIENT ABLE TO BE DISCHARGED - ADRIÁN CALLED FROM [facility] AND THEY WILL COME TO PICK PT UP.
[2020-08-13 17:02] VITALS: BP 124/78
--- NOTE | 2020-08-13 17:48 | NUR ---
PT LEFT UNIT VIA WHEEL CHAIR ACCOMPANIED BY STAFF - HOME VIA PVT VEHICLE ACCOMPANIED BY RETIREMENT LEADER. NO CO'S AT TIME OF D/C.
== END 2020-08-13 17:44 | disposition home or self-care (01) | DRG 246 ==
LOC: ER 00:03 → 2N 01:26 → EROBS 01:26 → 2N 01:50
PROVIDERS: Emergency Medicine; Hospitalist; Internal Medicine; Internal Medicine Cardiovascular Disease; Internal Medicine Nephrology; ADMIT Family Medicine; ATTEND Family Medicine
DX: I21.09 ST elevation (STEMI) myocardial infarction involving other coronary artery of anterior wall (principal); I50.21 Acute systolic (congestive) heart failure; N17.9 Acute kidney failure, unspecified; I13.0 Hypertensive heart and chronic kidney disease with heart failure and stage 1 through stage 4 chronic kidney disease, or unspecified chronic kidney disease; M10.9 Gout, unspecified; E11.22 Type 2 diabetes mellitus with diabetic chronic kidney disease; F31.9 Bipolar disorder, unspecified; E87.6 Hypokalemia; F25.9 Schizoaffective disorder, unspecified; G47.00 Insomnia, unspecified; N18.30 Chronic kidney disease, stage 3 unspecified; E78.00 Pure hypercholesterolemia, unspecified; K21.9 Gastro-esophageal reflux disease without esophagitis; I25.10 Atherosclerotic heart disease of native coronary artery without angina pectoris; I95.9 Hypotension, unspecified; D72.829 Elevated white blood cell count, unspecified; E66.9 Obesity, unspecified; Z96.652 Presence of left artificial knee joint; Z68.32 Body mass index [BMI] 32.0-32.9, adult; Z90.49 Acquired absence of other specified parts of digestive tract; Z79.899 Other long term (current) drug therapy; Z88.0 Allergy status to penicillin; Z79.84 Long term (current) use of oral hypoglycemic drugs
CPT/HCPCS: 10081

== ENCOUNTER 2020-08-15 01:33 | Emergency (ER) | payer OTHER ==
[~2020-08-15] VITALS: Ht 177.8 cm; Wt 104.3 kg
--- NOTE | ~2020-08-15 | EMS ---
[facility] [address] [place] [address] EMS Patient Care Report Name: JULITA LOMAX Room #: DEP WALESKA Woodall#: [id number] Admission: 08/15/20 Attend Phys: Discharge: 08/15/20 Date of : 41 Report #: [id number] THIS REPORT FOR: //name// Report Transmitted: 08/15/2020 10:14 EMS Care Summary [place], [place]/[facility] Incident [id number] @ 08/15/2020 00:59 Incident Location [id number] [place] [address] Patient JULITA LOMAX Male, 75 Years 1945 Patient Address [id number] [place], [place] [id number] Patient History Diabetes,Hypertension (HTN),Gastro-Esophageal Reflux Disease (GERD),Bipolar II Disorder,Schizophrenia,Gout,Constipation,Insomnia, Patient Allergies Penicillin allergy, Patient Medications Glipizide, Losartan, Amitriptyline, Hydrochlorothiazide (Hctz), Amlodipine, Acetaminophen, Allopurinol, Loratadine, Clonidine, Chief Complaint SOB Disposition Transported Lights/[place] Dispatch Reason Breathing Problem Transported To [facility] Narrative C/O sob only, just released from [facility] [address] [place] [address] EMS Patient Care Report Name: JULITA LOMAX Room #: DEP ER MalinaDeo#: [id number] Admission: 08/15/20 Attend Phys: Discharge: 08/15/20 Date of : 41 Report #: [id number] Initial Vitals @01:14P: 65,SpO2: 97, @:23P: 64,SpO2: 95, @:21P: 64,R: 16,BP: 95/60,Pain: 0/10,GCS: 15,Glucose: 187,CO: 1,SpO2: 94,Revised Trauma: 12,DC Suspected: true @01:29P: 62,R: 18,BP: 106/57,Pain: 0/10,GCS: 15,CO: 1,SpO2: 94,Revised Trauma: 12,DC Suspected: true @01:13P: 66,R: 18,BP: 104/65,Pain: 0/10,GCS: 15,SpO2: 94,Revised Trauma: 12, @01:22P: 64,Pain: 0/10,GCS: 15,SpO2: 94,DC Suspected: true @01:15P: 64,R: 16,Pain: 0/10,GCS: 15,CO: 2,SpO2: 96,DC Suspected: true Assessments @01:08MENTAL:Person Oriented,Time Oriented,Event Oriented,Place Oriented,SKIN:HEENT:LUNG SOUNDS:ABDOMEN:PELVIS//GI:No Abnormalities,EXTREMITIES:Left Arm: No Abnormalities,Right Arm: No Abnormalities,Left Leg: No Abnormalities,Right Leg: No Abnormalities,PULSE:Radial: 2+ Normal,NEURO:No Abnormalities, Impression Acute Respiratory Distress (Dyspnea) Procedures @01:2212-Lead ECGResponse: UnchangedSucceeded@01:1512-Lead ECGResponse: UnchangedSucceeded@PTAOxygen FlowRate: 4 Device: Nasal Cannula (NC) Response: ImprovedSucceeded@01:10StretcherResponse: Unchanged@01:20Saline Lock 8cc (18 ga) Site: Antecubital-LeftResponse: UnchangedSucceeded@01:123-Lead ECGResponse: UnchangedSucceeded@01:17Saline Lock cc (18 ga) Site: Hand-LeftResponse: UnchangedFailed@01:16Aspirin - 324 Milligrams (mg) - OralResponse: Unchanged@01:08ALS AssessmentResponse: UnchangedSucceeded@01:25STEMI AlertResponse: Unchanged Timeline STACKER,Oxygen FlowRate: 4 Device: Nasal Cannula (NC) Response: ImprovedSucceeded, 00:57,Call Received 00:57,Dispatch Notified 00:59,Dispatched 01:00,En Route 01:07,On Scene 01:08,At Patient 01:08,ALS Assessment,Response: UnchangedSucceeded, 01:10,Stretcher,Response: Unchanged 01:12,3-Lead ECG,Response: UnchangedSucceeded, 01:13,BP: 104/65 M,PULSE: 66,RR: 18 R,SPO2: 94 Ox,ETCO2: ,BG: ,PAIN: 0,GCS: 15, 01:14,BP: / M,PULSE: 65,RR: R,SPO2: 97 Ox,ETCO2: ,BG: ,PAIN: ,GCS: , 01:15,12-Lead ECG,Response: UnchangedSucceeded, 01:15,BP: / M,PULSE: 64,RR: 16 R,SPO2: 96 Ox,ETCO2: ,BG: ,PAIN: 0,GCS: 15, [facility] [address] [place] [address] EMS Patient Care Report Name: JULITA LOMAX Room #: DEP [facility]#: [id number] Admission: 08/15/20 Attend Phys: Discharge: 08/15/20 Date of : 41 Report #: [id number] 01:16,Aspirin - 324 Milligrams (mg) - Oral,Response: Unchanged 01:17,Saline Lock cc 18 ga Site: Hand-Left,Response: UnchangedFailed, 01:20,Saline Lock 8cc 18 ga Site: Antecubital-Left,Response: UnchangedSucceeded, 01:21,BP: 95/60 M,PULSE: 64,RR: 16 R,SPO2: 94 Ox,ETCO2: ,B,PAIN: 0,GCS: 15, 01:22,12-Lead ECG,Response: UnchangedSucceeded, 01:22,BP: / M,PULSE: 64,RR: R,SPO2: 94 Ox,ETCO2: ,BG: ,PAIN: 0,GCS: 15, 01:23,BP: / M,PULSE: 64,RR: R,SPO2: 95 Ox,ETCO2: ,BG: ,PAIN: ,GCS: , 01:23,Depart Scene 01:25,STEMI Alert,Response: Unchanged 01:29,BP: 106/57 M,PULSE: 62,RR: 18 R,SPO2: 94 Ox,ETCO2: ,BG: ,PAIN: 0,GCS: 15, 01:30,At Destination 01:54,Call Closed Disclaimer v1.1 Copyright 2020 [employer] This EMS Care Summary contains data elements from the applicable legal record (which may be displayed differently). It is designed to provide pertinent information for the following purposes: continuity of care, clinical quality, and state data reporting. The complete legal record is available to ED staff and administrators of the receiving hospital in [employer]'s Patient Tracker. All data is provided "as is."
[~2020-08-15 01:33] MED LIST changes: +AMITRIPTYLINE H10 M1 PO; +ARISTADA882 MG/3.2 IM; +ASPIRIN325 PO; +AUSTEDO6 MG PO; +BENZONATATE200 MG PO; +CARVEDILOL25 MG PO; +CATAPRES-TTS 31 EAC1 TRANSDERM; +CLOPIDOGREL75 MG PO; +COZAAR100 MG PO; +FLOMAX0.4 MG PO; +HYDRALAZINE 5050 MG PO; +LIPITOR40 MG PO; +OXYBUTYNIN 5 MG5 M2 PO; +SILTUSSIN DM C118 ML PO; +VENTOLIN HFA INH8 GM PO
[2020-08-15] MEDS ORDERED: ALLOPURINOL 10100 M3 PO (01:38)
[2020-08-15] MEDS ORDERED: HYDROCHLOROTH12.5 M2 PO (01:49)
[2020-08-15] MEDS ORDERED: TOPROL XL50 MG (01:52)
[2020-08-15] MEDS ORDERED: BISMATROL262 MG/15 PO (01:56)
[2020-08-15] MEDS ORDERED: SILTUSSIN DM D118 ML PO (01:57)
[2020-08-15] MEDS ORDERED: CARVEDILOL25 MG PO (02:05)
[2020-08-15] MEDS ORDERED: PLAVIX 75 MG TA75 MG PO (02:06)
[2020-08-15] MEDS ORDERED: HYDRALAZINE 5050 MG PO (02:06)
[2020-08-15] MEDS ORDERED: METFORMIN HCL500 M1 PO (02:07)
[2020-08-15] MEDS ORDERED: OMEPRAZOLE40 MG PO (02:10)
[2020-08-15 02:14] LABS: ABSOLUTE NEUTROPHILS 8.2 thou/uL (1.4-8.2); EOSINOPHILS 4.7 % (0.0-3.0); HEMATOCRIT 30.4 % (42.0-52.0); LYMPHOCYTES 12.5 % (24.0-44.0); MCH 30.1 pg (26.0-34.0); MCHC 32.8 g/dL (28.0-37.0); MCV 91.7 fL (80.0-100.0); MONOCYTES 9.5 % (1.0-8.0); POLYS 72.3 % (36.0-66.0); RBC 3.31 mil/uL (4.50-6.00); RDW 14.1 % (10.5-14.5); WBC 11.4 thou/uL (4.0-11.0)
[2020-08-15 02:15] LABS: CALCIUM 8.4 mg/dL (8.5-10.1); CREATININE 4.2 mg/dL (0.7-1.3); POTASSIUM 3.7 mmol/L (3.5-5.1)
[2020-08-15 02:17] LABS: PLATELET COUNT 455 thou/uL (150-400)
[2020-08-15 02:25] LABS: ALBUMIN 2.2 g/dL (3.4-5.0); TOTAL BILIRUBIN 0.3 mg/dL (0.2-1.0); TOTAL PROTEIN 6.3 g/dL (6.4-8.2)
[2020-08-15 02:51] LABS: TROPONIN-I 1.91 ng/mL (<0.06)
--- NOTE | 2020-08-15 05:52 | EKG ---
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 : 1945 Requested By: Seema Devine Order Number: [id number] MD: Anand Benítez Measurements Intervals [place] Rate: 64 P: 11 TX: 232 QRS: 56 QRSD: 102 T: 94 QT: 445 QTc: 459 Interpretive Statements Sinus rhythm Prolonged [place] interval Anteroseptal infarct, age indeterminate Minimal ST elevation, inferior leads Lateral leads are also involved Baseline wander in lead(s) V2 Compared to ECG 08/10/2020 15:47:09 First degree AV block now present ST (T wave) deviation now present Myocardial infarct finding still present Electronically Signed On 08-15-2020 5:52:23 CDT by Anand Benítez [email or web address] <ELECTRONICALLY SIGNED> By: Anand Benítez MD, FACC 08/15/20 0552 0137 0137 Anand Benítez MD, [facility] /EPI
[2020-08-15 09:10] VITALS: BP 128/72
== END 2020-08-15 09:21 ==
LOC: ER 01:33
PROVIDERS: Emergency Medicine
DX: R06.00 Dyspnea, unspecified (principal); E11.22 Type 2 diabetes mellitus with diabetic chronic kidney disease; I12.9 Hypertensive chronic kidney disease with stage 1 through stage 4 chronic kidney disease, or unspecified chronic kidney disease; N18.9 Chronic kidney disease, unspecified; M10.9 Gout, unspecified; Z90.49 Acquired absence of other specified parts of digestive tract; Z79.899 Other long term (current) drug therapy; Z87.891 Personal history of nicotine dependence; Z88.0 Allergy status to penicillin

== ENCOUNTER → 2020-08-18 | Outpatient (CLI) | payer OTHER ==
[~2020-08-18] MED LIST changes: +ALLOPURINOL 10100 M3 PO; +BISMATROL262 MG/15 PO; +HYDROCHLOROTH12.5 M2 PO; +METFORMIN HCL500 M1 PO; +OMEPRAZOLE40 MG PO; +PLAVIX 75 MG TA75 MG PO; +SILTUSSIN DM D118 ML PO; +TOPROL XL50 MG
== END ==
LOC: SJCVC 10:39
PROVIDERS: ATTEND Internal Medicine Cardiovascular Disease
DX: R94.31 Abnormal electrocardiogram [ECG] [EKG] (principal); I25.10 Atherosclerotic heart disease of native coronary artery without angina pectoris; I25.5 Ischemic cardiomyopathy; E78.00 Pure hypercholesterolemia, unspecified; I12.9 Hypertensive chronic kidney disease with stage 1 through stage 4 chronic kidney disease, or unspecified chronic kidney disease; E11.22 Type 2 diabetes mellitus with diabetic chronic kidney disease; N18.9 Chronic kidney disease, unspecified; F31.9 Bipolar disorder, unspecified; F25.9 Schizoaffective disorder, unspecified; I42.9 Cardiomyopathy, unspecified; Z79.82 Long term (current) use of aspirin; Z79.899 Other long term (current) drug therapy; Z88.0 Allergy status to penicillin

== ENCOUNTER → 2020-09-15 | Outpatient (CLI) | payer OTHER | LOC: SJCVC 13:08 | PROVIDERS: ATTEND Internal Medicine Cardiovascular Disease | DX: I25.10 Atherosclerotic heart disease of native coronary artery without angina pectoris (principal); R94.31 Abnormal electrocardiogram [ECG] [EKG]; I25.5 Ischemic cardiomyopathy; R06.00 Dyspnea, unspecified; E11.22 Type 2 diabetes mellitus with diabetic chronic kidney disease; I12.9 Hypertensive chronic kidney disease with stage 1 through stage 4 chronic kidney disease, or unspecified chronic kidney disease; N18.9 Chronic kidney disease, unspecified; I25.2 Old myocardial infarction; Z98.890 Other specified postprocedural states; Z98.61 Coronary angioplasty status; Z88.0 Allergy status to penicillin; Z79.82 Long term (current) use of aspirin; Z79.84 Long term (current) use of oral hypoglycemic drugs; Z79.899 Other long term (current) drug therapy; Z87.891 Personal history of nicotine dependence ==

== ENCOUNTER 2020-10-25 14:24 | Emergency (ER) | payer OTHER ==
[~2020-10-25] VITALS: Ht 177.8 cm; Wt 104.3 kg
[2020-10-25 17:50] VITALS: BP 117/65
== END 2020-10-25 17:51 | disposition home or self-care (01) ==
LOC: ER 14:24
DX: S01.81XA Laceration without foreign body of other part of head, initial encounter (principal); E11.22 Type 2 diabetes mellitus with diabetic chronic kidney disease; I12.9 Hypertensive chronic kidney disease with stage 1 through stage 4 chronic kidney disease, or unspecified chronic kidney disease; N18.9 Chronic kidney disease, unspecified; F31.9 Bipolar disorder, unspecified; F25.9 Schizoaffective disorder, unspecified; I25.2 Old myocardial infarction; Z90.49 Acquired absence of other specified parts of digestive tract; Z95.5 Presence of coronary angioplasty implant and graft; Z79.899 Other long term (current) drug therapy; Z88.0 Allergy status to penicillin; Z87.891 Personal history of nicotine dependence; W01.198A Fall on same level from slipping, tripping and stumbling with subsequent striking against other object, initial encounter; Y93.89 Activity, other specified; Y92.128 Other place in nursing home as the place of occurrence of the external cause; Y99.8 Other external cause status

== ENCOUNTER 2020-10-28 15:18 | Inpatient (IN) | payer OTHER ==
[~2020-10-28] VITALS: Ht 177.8 cm; Wt 94.9 kg
--- NOTE | ~2020-10-28 | EMS ---
[address] [address] EMS Patient Care Report Name: JULITA LOMAX Room #: REG WALESKA Woodall#: [id number] Admission: 10/28/20 Attend Phys: Discharge: Date of : 41 Report #: [id number] THIS REPORT FOR: //name// Report Transmitted: 10/28/2020 14:57 EMS Care Summary [place], [place]/[facility] Incident [id number] @ 10/28/2020 14:50 Incident Location [address] [place] [address] Patient JULITA LOMAX Male, 75 Years 1945 Patient Address [address] [place], [place] [id number] Patient History Diabetes,Hypertension (HTN),Gastro-Esophageal Reflux Disease (GERD),Bipolar II Disorder,Schizophrenia,Gout,Constipation,Insomnia, Patient Allergies Penicillin allergy, Patient Medications Amlodipine, Allopurinol, Glipizide, Hydrochlorothiazide (Hctz), Amitriptyline, Clonidine, Loratadine, Losartan, Acetaminophen, Chief Complaint shortness of breath Disposition Transported No Lights/[place] Dispatch Reason Breathing Problem Transported To [facility] Narrative M36 dispatched on a breathing problems. M36 arrived to find P28 on scene with PT. PT stated shortness of breath as chief complaint[place] [address] EMS Patient Care Report Name: JULITA LOMAX Room #: REG [facility]#: [id number] Admission: 10/28/20 Attend Phys: Discharge: Date of : 41 Report #: [id number] additional complaint. PT stated sinus congestion for last few days and cough at night. Assisted living center staff stated PT given cough syrup at night for cough. PT denied use of inhaler today for shortness of breath. 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 PT not prescribed oxygen. PT stated recent fall few days prior. Staff stated PT seen after fall and "scans were normal." PT denied fever and N/V/D. PT stood and pivoted to stretcher. PT secured with seat belts. Surgical mask placed on PT by EMS. PT denied pain. PT stated shortness of breath started today. PT stated "nothing makes a difference in shortness of breath." PT vitals monitored en route. PT report given. PT moved to hospital bed via three person sheet lift. PT care and belongings transferred to ER staff without incident. M36 placed back in service. Initial Vitals @15:13P: 68,R: 14,BP: 138/94,Pain: 7/10,GCS: 15,CO: 0,SpO2: 95,Revised Trauma: 12, @15:05P: 64,R: 16,BP: 146/96,Pain: 7/10,GCS: 15,Glucose: 80,CO: 2,SpO2: 91,Revised Trauma: 12, @15:01P: 72,R: 16,BP: 156/92,Pain: 7/10,GCS: 15,CO: 2,SpO2: 84,Revised Trauma: 12,UT Suspected: false Assessments @15:03MENTAL:Person Oriented,Time Oriented,Event Oriented,Place Oriented,SKIN:HEENT:Head/Face: Drainage,LUNG SOUNDS:ABDOMEN:PELVIS//GI:EXTREMITIES:PULSE:Radial: 2+ Normal,NEURO: Impression Shortness of breath Procedures @15:00ALS AssessmentResponse: UnchangedSucceeded@15:013-Lead ECGResponse: UnchangedSucceeded@15:03Oxygen FlowRate: 5 Device: Nasal Cannula (NC) Response: ImprovedSucceeded Timeline 14:47,Call Received 14:47,Dispatch Notified 14:50,Dispatched 14:51,En Route 14:58,On Scene 14:59,At Patient 15:00,ALS Assessment,Response: UnchangedSucceeded, 15:01,3-Lead ECG,Response: UnchangedSucceeded, 15:01,BP: 156/92 M,PULSE: 72,RR: 16 R,SPO2: 84 Ox,ETCO2: ,BG: ,PAIN: 7,GCS: 15, 15:03,Oxygen FlowRate: 5 Device: Nasal Cannula (NC) Response: [facility], [facility] [address] [place] [address] EMS Patient Care Report Name: JULITA LOMAX Room #: REG Jose C#: [id number] Admission: 10/28/20 Attend Phys: Discharge: Date of : 41 Report #: [id number] 15:05,BP: 146/96 M,PULSE: 64,RR: 16 R,SPO2: 91 Ox,ETCO2: ,B,PAIN: 7,GCS: 15, 15:07,Depart Scene 15:13,BP: 138/94 M,PULSE: 68,RR: 14 R,SPO2: 95 Ox,ETCO2: ,BG: ,PAIN: 7,GCS: 15, 15:14,At Destination 15:30,Call Closed Disclaimer v1.1 Copyright 2020 [employer] This EMS Care Summary contains data elements from the applicable legal record (which may be displayed differently). It is designed to provide pertinent information for the following purposes: continuity of care, clinical quality, and state data reporting. The complete legal record is available to ED staff and administrators of the receiving hospital in [facility]'s Patient Tracker. All data is provided "as is."
[2020-10-28 15:19] VITALS: BP 117/78
[2020-10-28 15:50] LABS: BE(vivo) -4.1 mmol/L (-2 to +3); HCO3 21.6 mmol/L (22.0-26.0); PCO2 41.8 mmHg (35.0-45.0); PO2 72.5 mmHg (80.0-100.0); pH 7.331 (7.360-7.450); sO2 93.6 % (92.0-98.0)
[2020-10-28 15:53] LABS: ABSOLUTE NEUTROPHILS 8.9 thou/uL (1.4-8.2); BASOPHILS 0.8 % (0.0-2.0); EOSINOPHILS 9.6 % (0.0-3.0); HEMATOCRIT 34.1 % (42.0-52.0); HEMOGLOBIN 10.9 gm/dL (14.0-18.0); LYMPHOCYTES 6.6 % (24.0-44.0); MCH 29.7 pg (26.0-34.0); MCV 92.7 fL (80.0-100.0); MONOCYTES 5.5 % (1.0-8.0); PLATELET COUNT 372 thou/uL (150-400); POLYS 77.5 % (36.0-66.0); RBC 3.67 mil/uL (4.50-6.00); WBC 11.5 thou/uL (4.0-11.0)
[2020-10-28 16:01] LABS: ANION GAP 14 mmol/L (7-16); BUN 36 mg/dL (7-18); CHLORIDE 107 mmol/L (98-107); CO2 24 mmol/L (21-32); CREATININE 3.6 mg/dL (0.7-1.3); GLUCOSE 73 mg/dL (74-106); POTASSIUM 3.6 mmol/L (3.5-5.1); SODIUM 145 mmol/L (136-145)
[2020-10-28 16:11] LABS: ALBUMIN 3.1 g/dL (3.4-5.0); SGOT 15 U/L (15-37); SGPT 15 U/L (16-63); TOTAL BILIRUBIN 0.3 mg/dL (0.2-1.0); TROPONIN-I <0.06 ng/mL (<0.06)
[2020-10-28 18:04] LABS: APTT 26.2 Seconds (24.5-32.8); INR 1.11
[2020-10-28] MEDS ORDERED: ASA81BEC PO (18:20)
[2020-10-28 19:21] LABS: URINE BILIRUBIN NEGATIVE (Negative); URINE BLOOD NEGATIVE (Negative); URINE CLARITY CLEAR; URINE COLOR YELLOW; URINE GLUCOSE-RANDOM* NEGATIVE (Negative); URINE KETONES NEGATIVE (Negative); URINE LEUKOCYTES-REFLEX NEGATIVE (Negative); URINE NITRITE-REFLEX NEGATIVE (Negative); URINE PROTEIN (DIPSTICK) 2+ (Negative); URINE UROBILINOGEN 0.2 E.U./dl (0.2-1.0)
[2020-10-28 19:42] LABS: BACTERIA-REFLEX None Seen /HPF (None Seen); CASTS None Seen /LPF (None Seen); CRYSTALS None Seen /LPF (None Seen); SQUAMOUS 0-3 Few /LPF (0-3); URINE RBC 1-2 Rare /HPF (NONE SEEN); URINE WBC-REFLEX 0-5 Rare /HPF (0-5)
--- NOTE | 2020-10-28 22:17 | NUR ---
Marci Hobbs from residential facility called for an update on pt's status left phone number for call back [phone] from Madeline pace. JAYLIN Bales notified
[2020-10-29 03:40] LABS: HEMATOCRIT 30.6 % (42.0-52.0); HEMOGLOBIN 9.8 gm/dL (14.0-18.0); MCH 29.9 pg (26.0-34.0); MCHC 32.1 g/dL (28.0-37.0); MCV 93.3 fL (80.0-100.0); RBC 3.28 mil/uL (4.50-6.00); WBC 10.7 thou/uL (4.0-11.0)
[2020-10-29 03:58] LABS: ALBUMIN 2.8 g/dL (3.4-5.0); ANION GAP 15 mmol/L (7-16); BUN 37 mg/dL (7-18); CALCIUM 8.6 mg/dL (8.5-10.1); CHLORIDE 105 mmol/L (98-107); CHOLESTEROL 124 mg/dL (<200); CO2 24 mmol/L (21-32); CREATININE 3.5 mg/dL (0.7-1.3); GLUCOSE 71 mg/dL (74-106); HDL CHOLESTEROL 21 mg/dL (>40); LDL CHOLESTEROL 72 mg/dL (<100); PHOSPHORUS 3.7 mg/dL (2.5-4.9); POTASSIUM 3.9 mmol/L (3.5-5.1); SODIUM 144 mmol/L (136-145); TC:HDL 5.9 Ratio (Not establshd); TRIGLYCERIDE 156 mg/dL (<150); TROPONIN-I <0.06 ng/mL (<0.06); VLDL 31 mg/dL (<40)
[2020-10-29 04:00] LABS: SERUM ASSESSMENT Clear
--- NOTE | 2020-10-29 07:30 | H ---
[facility] [place] [address] [address] HISTORY AND PHYSICAL Name: JULITA LOMAX Room #: 170-9 ADM IN M.R.#: [id number] Admission: 10/28/20 Attend Phys: Hermes Gordillo MD, FAAF Discharge: Date of : 41 Report #: [id number] THIS REPORT FOR: cc: Hermes Gordillo MD FACE Hermes Gordillo MD FAA FACEP Alexi Marshall DO ~ cc: Hermes Gordillo DATE OF SERVICE: 10/28/2020 HISTORY OF PRESENT ILLNESS: A 75-year-old white male who was admitted through the Emergency Room with acute shortness of breath onset today. The patient was here in the Emergency Room 3 days ago after he fell by tripping over his feet and bruising his face. Otherwise, there were no injuries. He returns today because of severe shortness of breath. He denies fever, chills or productive sputum, but says he has been wheezing. He denies any chest pain. He had a heart attack several months ago, presenting with chest pain, which he says he has had none of today. PAST MEDICAL HISTORY: He had an acute STEMI in July of this year, treated initially with a stent to the LAD and then later that admission with two stents to the diagonal branches, type 2 diabetes, schizophrenia, bipolar disorder, degenerative arthritis of knee with left knee replacement, cholecystectomy, gout, hypertension, chronic kidney disease, stage IV, developmental delay. ALLERGIES: PENICILLIN, CAUSED RASH. SOCIAL HISTORY: No cigarette or alcohol use. He lives at [facility] for over 10 years. He has one sister, living out of town, but no other relatives. He has no children. MEDICATIONS ON ADMISSION: Metformin, albuterol sulfate 2 puffs as needed, tamsulosin 0.4 mg daily, ferrous sulfate 325 mg daily, clopidogrel 75 mg daily, gemfibrozil 600 mg b.i.d., clonidine 0.3 patch weekly, metoprolol succinate 50 mg b.i.d., amlodipine 10 mg daily, losartan 100 mg daily, aspirin 325 mg daily, amitriptyline 10 mg nightly, Pristiq 50 mg daily, Aristada 1064 mg IM every 2 months, Austedo 6 mg p.o. b.i.d., hydrochlorothiazide 12 mg, Friday through Friday, MiraLax p.r.n., omeprazole 40 mg b.i.d., metformin XR 500 mg b.i.d., glipizide 2.5 mg q.a.m., oxybutynin 5 mg b.i.d., multivitamin 1 daily, allopurinol 100 mg daily. REVIEW OF SYSTEMS: He denies chest pain, abdominal pain, nausea, vomiting, dysuria or diarrhea. PHYSICAL EXAMINATION: GENERAL: Overweight tachypneic, audibly wheezing white male, [facility] [address] [place] [address] HISTORY AND PHYSICAL Name: JULITA LOMAX Room #: 170-9 [facility] IN M.R.#: [id number] Admission: 10/28/20 Attend Phys: Hermes Gordillo MD, FAAF Discharge: Date of : 43 Report #: [id number]. VITALS: BP 135/68, pulse 70, respirations 16, temperature afebrile. HEAD: Abrasions over his forehead and nose. EARS, NOSE AND THROAT: Edentulous. No definite lesions. Mild dystonia of his tongue. EYES: No icterus. LUNGS: Diffuse expiratory wheezes with decreased breath sounds assisted up the left lung posteriorly. CARDIAC: Heart rhythm regular. ABDOMEN: Obese, soft, without mass or tenderness. EXTREMITIES: 1+ pretibial edema. Toes are cool. NEUROLOGIC: He is alert, knows his age and that he had a heart attack recently and described the pain. He does not know the day or the date of the season. No lateralized deficits. He has good light touch sensation in his toes. LABORATORY DATA: Chest x-ray and CAT scan of the chest showed a large left pleural effusion and left lower lobe infiltrates. Venous Dopplers negative for DVT. White count 11,500, hemoglobin 10.9, MCV 92, platelets 372,000. Sodium of 145, potassium 3.6, CO2 of 24, BUN 36, creatinine 13.6, estimated GFR 17, blood sugar 73, lactic acid 1.2, calcium 9.0. Liver enzymes normal. Troponin normal. BNP elevated 2600 in the setting of kidney failure. Procalcitonin normal. Her EKG shows old anterior wall infarct. IMPRESSION: 1. Acute respiratory failure with large pleural effusion and pulmonary infiltrates, probable pneumonia, possibly aspiration. 2. PENICILLIN ALLERGY -- RASH. 3. Recent fall with facial contusions. 4. Coronary artery disease, status post three stents in July of this year for STEMI. 5. Chronic kidney disease, stage IV. 6. Developmental delay with bipolar disorder and schizophrenia. 7. Type 2 diabetes. 8. Obesity. PLAN: Treat for pneumonia with bronchodilators and antibiotics, pulmonary to help with selection of antibiotics, consider therapeutic and diagnostic thoracentesis, attempted sputum culture. Monitor blood sugars. Hold metformin, glyburide and losartan because of kidney failure. Prognosis guarded. <ELECTRONICALLY SIGNED> By: Alexi Marshall DO 10/29/20729 56 26 Alexi Marshall DO /nt
[2020-10-29 07:37] VITALS: BP 102/60
[2020-10-29 07:58] VITALS: BP 102/63
[2020-10-29 08:15] LABS: % SATURATION 11 % (20-39); IRON 24 ug/dL (65-175); TIBC 211 ug/dL (250-450)
[2020-10-29 08:38] VITALS: BP 140/83
--- NOTE | 2020-10-29 10:38 | NUR ---
[age] YEAR OLD MALE ADMITTED TO 2N ROOM 215. PT WAS BOUGHT INTO THE ER PER EMS [facility] DUE TO SOA. PT STATES SHORTNESS OF BREATH STARTED TODAY, BUT COUGH A COUPLE DAYS AGO. PT BROUGHT IN WEARING 5L O2. PT IS ALERT AND ORIENTED TIMES FOUR. VSS, 97%4L, SR ON TELE. PT DENIES ANY PAIN, BUT STATES HE IS SOA ON EXCERTION. WOUNDS NOTED ON PT FOREHEAD HE STATES HE FELL THREE DAYS AGO AT HOME. PT TOLERATES MEDS AND MEALS. WILL CONTINUE TO MONITOR.
--- NOTE | 2020-10-29 10:59 | EKG ---
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: radha : 1945 Requested By: Jyoti Howard Order Number: [id number] MD: Alvaro Ley Measurements Intervals Bennett Rate: 64 P: 23 NY: 251 QRS: 39 QRSD: 101 T: -58 QT: 427 QTc: 441 Interpretive Statements Sinus rhythm Prolonged [place] interval Anterior infarct, age indeterminate Compared to ECG 08/15/2020 01:37:21 ST (T wave) deviation no longer present Myocardial infarct finding still present Electronically Signed On 10-29-2020 10:59:41 CDT by Alvaro Ley [email or web address] <ELECTRONICALLY SIGNED> By: Alvaro Ley MD 10/29/20 1059 154 154 Alvaro Ley MD /[facility]
[2020-10-29 11:03] VITALS: BP 159/82
[2020-10-29 15:29] LABS: APTT 32.7 Seconds (24.5-32.8); INR 1.14; PROTIME 12.3 Seconds (10.5-12.1)
[2020-10-29 15:34] VITALS: BP 155/86
[2020-10-29 20:41] VITALS: BP 155/94
[2020-10-30 03:18] LABS: ABSOLUTE NEUTROPHILS 8.1 thou/uL (1.4-8.2); BASOPHILS 0.1 % (0.0-2.0); EOSINOPHILS 0.1 % (0.0-3.0); HEMATOCRIT 31.9 % (42.0-52.0); HEMOGLOBIN 10.5 gm/dL (14.0-18.0); MCH 30.5 pg (26.0-34.0); MCV 92.3 fL (80.0-100.0); MONOCYTES 0.6 % (1.0-8.0); PLATELET COUNT 334 thou/uL (150-400); POLYS 95.2 % (36.0-66.0); RBC 3.45 mil/uL (4.50-6.00); RDW 17.8 % (10.5-14.5); WBC 8.5 thou/uL (4.0-11.0)
[2020-10-30 03:26] LABS: ALBUMIN 2.9 g/dL (3.4-5.0); CREATININE 3.2 mg/dL (0.7-1.3); PHOSPHORUS 3.7 mg/dL (2.5-4.9); POTASSIUM 3.4 mmol/L (3.5-5.1)
--- NOTE | 2020-10-30 06:47 | HC ---
[facility] [place] [address] CONSULTATION Name: JULITA LOMAX Room #: 215-P ADM IN M.R.#: [id number] Admission: 10/28/20 Attend Phys: Hermes Gordillo MD, FAA Discharge: Date of : 41 Report #: [id number] THIS REPORT FOR: cc: Hermes Gordillo MD [facility] Hermes Gordillo MD FAA FACE Jerson Brennan MD ~ DATE OF SERVICE: 10/29/2020 INFECTIOUS DISEASE CONSULTATION ATTENDING PHYSICIAN: Dr. Gordillo. REASON FOR EVALUATION: Complicated pneumonitis with large left pleural effusion. HISTORY OF PRESENT ILLNESS: Chart reviewed and the patient was examined. This is a 75-year-old gentleman who has got fairly significant medical history of diabetes mellitus type 2, also some underlying cardiomyopathy, chronic renal insufficiency with bipolar disorder and schizoaffective disorder, who resides in a facility. He notes he has been progressively dyspneic over the course of the last couple of months. He has had a nonproductive cough. It is not clear that he has had significant fevers. He maintains an adequate appetite. He was admitted subsequent to a fall. Evaluation raised question of acute myocardial infarction. On further evaluation, imaging of the chest showed large degree of opacity on the left side. CT confirmed moderate sized effusion with left lung consolidation. Lactic acid was 1.2. Procalcitonin was less than 0.05. CT chest confirmed ____ creatinine in mid 3s, which is not his baseline. He is empirically started on therapy with cefepime. He is maintained on oxygen at 5 liters per nasal cannula. ALLERGIES: LISTED TO PENICILLIN, DESCRIBED A RASH. HE DOES NOT KNOW ANY DETAILS. CURRENT MEDICATIONS: Include cefepime 1 gram b.i.d., clonidine, famotidine, allopurinol, clopidogrel, tamsulosin, ipratropium, albuterol inhaler. PAST MEDICAL HISTORY: As described above, hypertension, history of diabetes mellitus complicated by renal failure, creatinine 3.5 range, history of gout, bipolar disease, schizoaffective disease, developmental delay. SOCIAL HISTORY: Former smoker, no ethanol, no illicit drug use. FAMILY HISTORY: Noncontributory. REVIEW OF SYSTEMS: Otherwise, unremarkable. [address] [address] CONSULTATION Name: JULITA LOMAX Room #: 215-[facility] IN M.R.#: [id number] Admission: 10/28/20 Attend Phys: Hermes Gordillo MD, FAAF Discharge: Date of : 41 Report #: [id number] PHYSICAL EXAMINATION: GENERAL: He appears chronically ill, undernourished. He is essentially pleasant, quite animated, evident in discussion are those above noted disorders. VITAL SIGNS: Temperature 98.2, pulse 75, respirations 21, blood pressure 140/83. SKIN: Warm, dry. HEENT: Remarkable for he has got a scalp and nose wound as a result of the fall and abrasion. There is some dried eschar. He has got some periorbital soft tissue swelling and mild contused areas. Extraocular muscles intact. NECK: Supple. LUNGS: Diminished breath sounds in the left greater than right. Few scattered coarse breath sounds. HEART: Regular with occasional ectopy, soft systolic murmur. ABDOMEN: Obese, somewhat firm, no apparent peritoneal signs. EXTREMITIES: Bilateral knees have contused areas with abrasion. Otherwise, not significant pedal edema. GENITOURINARY AND RECTAL: Deferred. LABORATORY DATA: From this morning, left pleural effusion with lower lobe consolidation, also patchy infiltrate on the right. Blood cultures sterile thus far. Electrolytes: Sodium 144, potassium 3.9, chloride 105, bicarbonate is 24, anion gap of 15, BUN and creatinine 37 and 3.5, glucose of 71. Albumin of 2.8. CBC: White count of 10.7, H and H 9.8 and 30.5, platelets of 313. Urinalysis unremarkable. CT of the chest as described above. Moderate to large left pleural effusion or consolidation. Venous Doppler lower extremity showed no evidence of DVT. Influenza antigen was negative as well as coronavirus testing. BNP elevated at 2658. EKG showed anterior infarct, age indeterminate. ASSESSMENT AND PLAN: Complicated left-sided pneumonitis with large pleural effusion. Patient has been ill for a number of weeks. Certainly can exclude an infectious component. I suspect multifactorial etiology. When he is deemed stable, would perhaps favor a thoracentesis and send the fluid for analysis. We will continue empiric therapy with cefepime. At this point, he is not overtly toxic. Continue supportive care with oxygen therapy, wean as allowed. He remains quite tenuous at this point, monitor expectantly. <ELECTRONICALLY SIGNED> By: Jerson Brennan MD 10/30/20 0647 [id number] Jerson Brennan MD /nt
[2020-10-30 08:00] VITALS: BP 179/49; BP 186/115
--- NOTE | 2020-10-30 08:37 | HC ---
[facility] [place] [address] CONSULTATION Name: JULITA LOMAX Room #: 215-P ADM IN M.R.#: [id number] Admission: 10/28/20 Attend Phys: Hermes Gordillo MD, FAAF Discharge: Date of : 41 Report #: [id number] THIS REPORT FOR: cc: Hermes Gordillo MD FAA FACE Hermes Gordillo MD FAA FACEP Alvaro Ley MD ~ DATE OF SERVICE: 10/29/2020 CARDIOLOGY CONSULTATION INDICATION: Shortness of breath. HISTORY OF PRESENT ILLNESS: This is a 75-year-old gentleman with a history of CAD/DE/stents, diabetes mellitus, hypertension, bipolar disorder, schizoaffective disorder, who was transferred for increasing shortness of breath. The patient developed increasing dyspnea and cough prior to admission, noted to have 80% saturation on initial evaluation by EMS. He denies any episodes of chest pains, diarrhea or nausea. Chest x-ray reveals left pleural effusion with possible left infiltrate. PAST MEDICAL HISTORY: Presented with chest pain in July with DE undergoing stent placement to the LAD and diagonal arteries. EF in the 40%-45% range. History of bipolar disorder, schizoaffective disorder, diabetes mellitus, hypertension, chronic kidney disease. ALLERGIES: INCLUDE PENICILLIN. MEDICATIONS: Includes glipizide, clonidine, losartan, Plavix 75 mg daily, aspirin once a day, omeprazole, metformin, amlodipine. SOCIAL HISTORY: Lives in a [facility]. Denies any tobacco use. FAMILY HISTORY: Unobtainable. REVIEW OF SYSTEMS: Full 10 point review of systems performed. Only the pertinent positives and negatives are described in the HPI. PHYSICAL EXAMINATION: VITAL SIGNS: Blood pressure 120/70, heart rate is 70 beats per minute. GENERAL APPEARANCE: This is an overweight male in no acute distress. HEENT: Normocephalic, atraumatic. Oral mucosa moist. NECK: Supple. LUNGS: Expiratory wheezing and rhonchi diffusely. ABDOMEN: Soft, nontender. EXTREMITIES: Positive edema, no cyanosis: [facility] [address] [place] [address] CONSULTATION Name: JULITA LOMAX Room #: 215- ADM IN M.R.#: [id number] Admission: 10/28/20 Attend Phys: Hermes Gordillo MD, FAAF Discharge: Date of : 41 Report #: [id number] EKG reveals sinus rhythm, anterior DE. LABORATORY DATA: Troponin is negative. ASSESSMENT AND PLAN: 1. Respiratory failure/left pleural effusion/infiltrate. Recommend pulmonary evaluation and possible thoracentesis. Although heart failure may be playing a component to his symptoms, we will rule out primary pulmonary etiology. Continue on antibiotics. 2. Coronary artery disease/myocardial infarction/stent, stable with no complaints of angina. Continue on aspirin and Plavix. 3. Ischemic cardiomyopathy, recent echo revealed EF in the 40%-45% range. Consider gentle diuresis. We will repeat echocardiogram. 4. Diabetes mellitus, as per primary. 5. Hypertension, continue home medications. 6. Chronic renal insufficiency, follow creatinine levels. Hold losartan. <ELECTRONICALLY SIGNED> By: Alvaro Ley MD 10/30/20 0837 0 21 Alvaro Ley MD /nt
[2020-10-30 09:50] LABS: CLARITY SLIGHTLY CLOUDY; COLOR YELLOW; SOURCE LEFT CHEST; TOTAL VOLUME 63 mL
[2020-10-30 10:47] LABS: BF NUCLEATED CELLS 565 /mm3; BF RBC 941 /mm3
--- NOTE | 2020-10-30 11:06 | NUR ---
WOUND CONSULT; THE PATIENT HAS A WOUND TO THE NOSE AND FORHEAD RELATED TO A FALL 3 DAYS AGO HE SAYS. THE WOUND HAS FORMED A MOIST SCAB OVER BOTH THAT HAS NO ERYTHEMA. THE WOUND WAS NOT TENDER TO TOUCH WHEN I CLEANSED THE AREA. THE PATIENTS CHRIS SCORE IS 20 WITH NO OTHER RISK. I ENCOUNAGED HIM TO TURN AND HE VERBALIZED UNDERSTANDING AND DEMONSTRATED THIS. THE ALBUMIN IS LOW AT 3.1. I ENCOURAGED HIM TO EAT. RECOMMENDATIONS; PAINT WOUNDS WITH BETADINE DAILY/PRN, COVER WITH BORDERED FOAMS (CUT TO FIT). DISCUSSED WITH RN
--- NOTE | 2020-10-30 11:08 | 2DMMODE ---
[address] [address] 2 D/M-MODE ECHOCARDIOGRAM Name: JULITA LOMAX Room #: 215-P ADM IN M.R.#: [id number] Admission: 10/28/20 Attend Phys: Hermes Gordillo MD, FAAF Discharge: Date of : 41 Report #: [id number] THIS REPORT FOR: cc: Hermes Gordillo MD, FAAFP, FACEP, Douglas MD FAA Alvaro Whitlock MD ~ APPROVED REPORT Study performed: 10/30/2020 09:59:04 EXAM: Comprehensive 2D, Doppler, and color-flow Echocardiogram Patient Location: Bedside Room #: 215 Status: routine BSA: 2.21 HR: 215 bpm BP: 155/94 mmHg Rhythm: NSR Other Information Study Quality: Good Indications Diabetes Dyspnea CAD Hypertension/HDD Left Ventricle The left ventricle is normal size. Borderline concentric left ventricular hypertrophy. The left ventricular systolic function is normal. The left ventricular ejection fraction is within the normal range. LVEF is >55%. Right Ventricle The right ventricle is normal size. The right ventricular systolic function is normal. Atria Left atrium is at the upper limits of normal. The right atrium size is normal. Aortic Valve The aortic valve is normal in structure. No aortic regurgitation is [address] [address] 2 D/M-MODE ECHOCARDIOGRAM Name: JULITA LOMAX Room #: 215-P ADM IN M.R.#: [id number] Admission: 10/28/20 Attend Phys: Hermes Gordillo MD, Discharge: Date of : 41 Report #: [id number] present. Mitral Valve The mitral valve is normal in structure. There is no mitral valve regurgitation noted. Tricuspid Valve The tricuspid valve is normal in structure. Pulmonic Valve The pulmonary valve is normal in structure. Great Vessels The aortic root is normal in size. Pericardium There is no pericardial effusion. <Conclusion> The left ventricle is normal size. Borderline concentric left ventricular hypertrophy. The left ventricular systolic function is normal. The right ventricle is normal size. Left atrium is at the upper limits of normal. The aortic valve is normal in structure. There is no mitral valve regurgitation noted. <ELECTRONICALLY SIGNED> By: Alvaro Ley MD 10/30/20 1107 06 06 Alvaro Ley MD /INF
[2020-10-30 12:15] LABS: BF MACROPHAGE 56 %; BF NEUTROPHILS 11 %
[2020-10-30 12:31] VITALS: BP 144/82
--- NOTE | 2020-10-30 14:53 | NUR ---
Chart review going to have thoracentesis today. No anticipated dc today. Unable to visit with patient, r/t resting with eyes closed.
[2020-10-30 16:50] VITALS: BP 156/94
--- NOTE | 2020-10-30 17:30 | NUR ---
PT SEEN BY TODAY, RECEIVED THORACENTESIS HAD 3L PULLED, PT CAN BE IMPULSIVE, SLEPT FOR THE MAJORITY OF THE DAY. GOAL SHOULD BE TO GET THE PT OFF OF NASAL CANULA, PT AT BASELINE DOES NOT REQUIRE O2. PT'S WOUNDS WERE ALSO ADDRESSED BY JAYLIN HALL. PT IS PROGRESSING TOWARDS DISCHARGE.
[2020-10-30 19:47] VITALS: BP 150/59
[2020-10-30 23:06] LABS: GLYCOHEMOGLOBIN (HGB A1C) 5.2 % (4.8-5.6)
[2020-10-31 04:00] VITALS: BP 155/55
[2020-10-31 04:00] LABS: ALBUMIN 2.8 g/dL (3.4-5.0); CALCIUM 8.9 mg/dL (8.5-10.1); CREATININE 3.2 mg/dL (0.7-1.3); PHOSPHORUS 3.1 mg/dL (2.5-4.9); POTASSIUM 3.4 mmol/L (3.5-5.1)
--- NOTE | 2020-10-31 07:23 | NUR ---
IMPULSIVE,GOT UP SEVERAL TIMES WITHOUT CALLING.ON O2 4L NC.MONITOR SHOWS SR.POC CONTINUED.
[2020-10-31 08:00] VITALS: BP 133/78
[2020-10-31 08:33] LABS: SOURCE THORACENTESIS
--- NOTE | 2020-10-31 09:15 | NUR ---
chart review. cm visited with thelma at bedside. noted he on o2, no home oxygen. Intro to cm and dcp. He reported he lives at [facility] with 12 others. Had fall going to seat on the bench. Independent . facility does his medication management. No dme, stands to shower and does his on ALD;s. PCP dr campos. Will cont following as needed for dc needs.
[2020-10-31 12:00] VITALS: BP 158/90
[2020-10-31 16:56] VITALS: BP 122/69
--- NOTE | 2020-10-31 18:20 | NUR ---
RECEIVED THE PATIENT CONSCIOUS AND ORIENTED.ON NASAL CANNULA AT 3LPM, SATURATING WELL.NOT IN PAIN OR DISTRESS.A,BULATED IN THE HALLWAY WITH PHYSICAL THERAPIST.ALL NEEDS ATTENDED.
[2020-10-31 20:15] VITALS: BP 146/93; BP 157/82
[2020-11-01] VITALS (8 sets, daily range): BP systolic 128–170; BP diastolic 62–101
--- NOTE | 2020-11-01 04:16 | NUR ---
ASSUMED CARE OF PT AT 1900, PT IS A/O X 4 AND REQUIRES FREQUENT REMINDERS TO PRESS CALL LIGHT PRIOR TO STANDING UP. PT REMAINS ON 3L NC AT THIS TIME, DENIES SOA OR PAIN. WILL CONTINUE TO WORK TOWARDS PT'S POC AT THIS TIME.
[2020-11-01 04:41] LABS: ABSOLUTE NEUTROPHILS 15.3 thou/uL (1.4-8.2); BASOPHILS 0.1 % (0.0-2.0); HEMATOCRIT 31.7 % (42.0-52.0); HEMOGLOBIN 10.4 gm/dL (14.0-18.0); LYMPHOCYTES 3.4 % (24.0-44.0); MCH 30.1 pg (26.0-34.0); MCHC 32.8 g/dL (28.0-37.0); MCV 91.6 fL (80.0-100.0); MONOCYTES 1.9 % (1.0-8.0); PLATELET COUNT 343 thou/uL (150-400); POLYS 94.6 % (36.0-66.0); RBC 3.46 mil/uL (4.50-6.00); RDW 17.9 % (10.5-14.5); WBC 16.2 thou/uL (4.0-11.0)
[2020-11-01 04:49] LABS: ALBUMIN 2.7 g/dL (3.4-5.0); PHOSPHORUS 3.3 mg/dL (2.5-4.9); POTASSIUM 3.3 mmol/L (3.5-5.1); TOTAL BILIRUBIN 0.3 mg/dL (0.2-1.0); TOTAL PROTEIN 6.4 g/dL (6.4-8.2)
--- NOTE | 2020-11-01 10:46 | NUR ---
WOUND CARE F/U; THIS IS A DELIGHTFUL MAN WITH CHILDLIKE PRESENTATION. THE HAS SCAB RELATED TO A FALL. TODAY I WAS ABLE TO EAISILY REMOVE SEVERAL TO REVEAL HEALED AREAS. NO NEW COMPLAINTS. THE PATIENT IS UP IN A CHAIR TODAY. RECOMMENDATIONS; NO CHANGES DISCUSSED WITH RN
--- NOTE | 2020-11-01 12:51 | NUR ---
PT ALERT AND ORIENTED TIMES THREE, WITH PERIODS OF CONFUSION AND HARD OF HEARING. VSS, 2L PER NASAL CANNULA. PT DENIES PAIN. PT TOLERATES MEDS AND MEALS. PT WORKED WELL WITH PT/OT, AND IS UP SITTING IN THE CHAIR. PT SLOWLY PROGRESSING TOWRADS POC GOALS.
--- NOTE | 2020-11-01 13:09 | PATH ---
[facility] [address] [place] [address] PATHOLOGY RPT PROCEDURE Name: JULITA LOMAX Room #: 215-P ADM IN M.R.#: [id number] Admission: 10/28/20 Date of : 41 Discharge: Report #: [id number] Path Case #: [id number] Note [facility] Accession Number: [id number] TESTS RESULT FLAG UNITS REF RANGE LAB Clinician Provided Cytology Information No. of containers..01 Other (Miscellaneous) Source: THORA DIAGNOSIS: 02 PLEURAL FLUID, THORACENTESIS NEGATIVE FOR MALIGNANT EPITHELIAL CELLS. REACTIVE MESOTHELIAL CELLS ARE PRESENT. THIS INTERPRETATION INCLUDES EVALUATION OF A CELL BLOCK. RARE CHRONIC INFLAMMATORY CELLS. Pathologist ICD10: 02 J90 Signed out by: 02 Genie Price MD, Pathologist NPI- [id number] Performed by: Binta Singh, [place]ette Performer ([facility]) Gross description: 01 15ML, BALBIRDerrick ARACELI, 1 TP 1CB /LCS 10/31/2020 0342 Local FLAG LEGEND: L-Low Normal,H-High Normal,LL-Alert Low,HH-Alert High <-Panic Low,>-Panic High,A-Abnormal,AA-Critical Abnormal Performed at: [address] [place] [address] Rich Maddox MD, [address] [address] Genie Price MD, Specimen Comment: A courtesy copy of this report has been sent to [phone] Specimen Comment: Report sent to DR MAR Performed at: [address], [place], [place] [id number] MD Rich Maddox MD Phone: [phone]
--- NOTE | 2020-11-01 14:47 | NUR ---
ON-GOING ASSESSMENT: CM REVIEWED CHART. PTS WBS IS ELEVATED AND PT REMAINS ON IV ANBX. PT IS STILL ON 2L OXYGEN. [facility] CM WILL CONTINUE TO FOLLOW TO ASSIST NEEDED.
[2020-11-02 03:57] LABS: ALBUMIN 2.9 g/dL (3.4-5.0); CALCIUM 8.8 mg/dL (8.5-10.1); CREATININE 2.8 mg/dL (0.7-1.3); PHOSPHORUS 3.1 mg/dL (2.5-4.9); POTASSIUM 3.6 mmol/L (3.5-5.1)
[2020-11-02 04:53] VITALS: BP 150/70
--- NOTE | 2020-11-02 05:53 | NUR ---
Pt. rested quietly at intervals during the night when checked on during frequent rounds. He has sounded off his bed alarm often and has been ob- served drinking water from the bathroom tap. Pt. was given thickened liquids and encouraged to drink it instead from the tap. No c/o shortness of air. Bed alarm is on.
[2020-11-02 07:55] VITALS: BP 148/85
[2020-11-02 12:05] VITALS: BP 153/89
[2020-11-02 16:05] VITALS: BP 121/65
--- NOTE | 2020-11-02 16:23 | NUR ---
ID here and pt now on po atb. Weaned off o2. Message left for gp home restoration service cleaner Tracie regarding possible dc home later today pending rounds by the attending Dr. Gordillo. Tracie to call the unit RN this evening. They will provide transport at dc and will need a copy of his dc instructions and dc summary to be sent with him.
[2020-11-02 20:10] VITALS: BP 149/87
--- NOTE | 2020-11-03 03:09 | NUR ---
PT IS A/O X4 AND IS UP WITH SBA TO THE BR. IS IMPULSIVE AND DOES NOT CALL OUT FOR ASSISTANCE DESPITE CONSISTENT RE-EDUCATION ON USE OF BED CONTROLS AND USE OF CALL LIGHT. ROOM AIR. ON SCHEDULED BRTX. SR/SA ON THE MONITOR WITH SEVERAL PAC/PVC. ATTEMPTED TWICE CALLING PHYSCIAN'S ANSWERING SERVICE. NO CALL BACK RECEIVED. REQUESTING AM LABS. WILL ENDORSE TO DAY SHIFT NURSE IF PHYSCIAN DOES NOT RETURN CALL BY END OF SHIFT. VOIDS PER TOILET BUT IS INCONTIENT AT TIMES. WEARS PULL UPS.NO BM THIS SHIFT. HS BS ELEVATED, GAVE INSULIN DIRECTED. FALL PRECAUTIONS IN PLACE, CALL LIGHT IS WITHIN REACH. WILL CONTINUE TO MONITOR.
[2020-11-03 04:14] LABS: ALBUMIN 2.8 g/dL (3.4-5.0); CALCIUM 8.8 mg/dL (8.5-10.1); CREATININE 2.6 mg/dL (0.7-1.3); PHOSPHORUS 3.1 mg/dL (2.5-4.9); POTASSIUM 3.2 mmol/L (3.5-5.1)
[2020-11-03 05:18] VITALS: BP 161/82
[2020-11-03 07:45] VITALS: BP 148/97
--- NOTE | 2020-11-03 10:06 | NUR ---
WOUND CARE F/U; ALERT, AWAKE, COOPERATIVE, WOUNDS BRIDGE OF NOSE AND FOREHEAD, DRY SCABS, NO DRAINAGE, NO S/S INFECTION, FOAM DRSG NOT STAYING ON, WILL SWITCH POC TO NO STING SKIN PREP, WOUNDS HEALING RECOMMENDATIONS; CLEANSE W/ NS, APPLY NO STING SKIN PREP DAILY AND PRN UNIVERSAL WORKER ASSISTED LIVING AWARE
[2020-11-03 11:45] VITALS: BP 140/86
[2020-11-03] MEDS ORDERED: CEFUROXIME250 MG PO (15:09)
[2020-11-03 15:30] VITALS: BP 153/78
--- NOTE | 2020-11-03 15:37 | NUR ---
Pt dcing back to the gp home this evening. Tracie to pickup at 5:30 and reveiw dc instructions with the RN. Chart copy ready to be sent with the pt as well. No cm interventions indicated. Pt to f/u with his pcp.
--- NOTE | 2020-11-03 16:58 | NUR ---
TELE DISCONITINUED AND PT HAS NO IV. STERLING ECKERT GARFIELD WILL ENVIRONMENTAL PROTECTION GEOLOGIST PT.
--- NOTE | 2020-11-03 18:08 | NUR ---
PT D/C TO FACILITY; COMMUNICATED DISCHARGE PAPERWORK WITH [facility]SON. PT D/C TO [facility]. NO CONCERNS AT THIS TIME.
[2020-11-05 12:07] LABS: BODY FLUID ALBUMIN 2.5 g/dL (Not Estab.); BODY FLUID AMYLASE 32 U/L (()); BODY FLUID GLUCOSE 180 mg/dL (()); BODY FLUID LDH 93 IU/L (()); BODY FLUID PROTEIN 3.7 g/dL (())
== END 2020-11-03 18:13 | DRG 193 ==
LOC: ER 15:18 → EROBS 18:35 → 2N 18:35
PROVIDERS: Hospitalist; Internal Medicine; Internal Medicine Pulmonary Disease; Nurse Practitioner Family; ADMIT Family Medicine; ATTEND Family Medicine
PROC: 0W9B3ZZ Drainage of Left Pleural Cavity, Percutaneous Approach (ICD-10-PCS; principal; 2020-10-30)
DX: J18.9 Pneumonia, unspecified organism (principal); J96.01 Acute respiratory failure with hypoxia; J91.8 Pleural effusion in other conditions classified elsewhere; N18.5 Chronic kidney disease, stage 5; E87.0 Hyperosmolality and hypernatremia; Z20.822 Contact with and (suspected) exposure to COVID-19; M10.9 Gout, unspecified; F31.9 Bipolar disorder, unspecified; X58.XXXD Exposure to other specified factors, subsequent encounter; I25.10 Atherosclerotic heart disease of native coronary artery without angina pectoris; I25.5 Ischemic cardiomyopathy; E11.22 Type 2 diabetes mellitus with diabetic chronic kidney disease; E66.9 Obesity, unspecified; F20.9 Schizophrenia, unspecified; S00.81XA Abrasion of other part of head, initial encounter; I12.9 Hypertensive chronic kidney disease with stage 1 through stage 4 chronic kidney disease, or unspecified chronic kidney disease; D50.9 Iron deficiency anemia, unspecified; R62.50 Unspecified lack of expected normal physiological development in childhood; E87.6 Hypokalemia; S00.93XD Contusion of unspecified part of head, subsequent encounter; Z90.49 Acquired absence of other specified parts of digestive tract; Z68.30 Body mass index [BMI] 30.0-30.9, adult; Z79.82 Long term (current) use of aspirin; Z79.899 Other long term (current) drug therapy; Z95.5 Presence of coronary angioplasty implant and graft; I25.2 Old myocardial infarction; Z88.0 Allergy status to penicillin; Z87.891 Personal history of nicotine dependence
CPT/HCPCS: 10081

== ENCOUNTER → 2020-11-15 | Outpatient (CLI) | payer OTHER ==
[~2020-11-15] MED LIST changes: +ASA81BEC PO; +CEFUROXIME250 MG PO
== END ==
LOC: SJCVC 14:31
PROVIDERS: ATTEND Internal Medicine Cardiovascular Disease
DX: I44.0 Atrioventricular block, first degree (principal); R94.31 Abnormal electrocardiogram [ECG] [EKG]; I25.10 Atherosclerotic heart disease of native coronary artery without angina pectoris; I25.5 Ischemic cardiomyopathy; E78.00 Pure hypercholesterolemia, unspecified; N18.9 Chronic kidney disease, unspecified; I12.9 Hypertensive chronic kidney disease with stage 1 through stage 4 chronic kidney disease, or unspecified chronic kidney disease; F31.9 Bipolar disorder, unspecified; E78.5 Hyperlipidemia, unspecified; F25.9 Schizoaffective disorder, unspecified; Z88.0 Allergy status to penicillin; Z79.899 Other long term (current) drug therapy; Z79.84 Long term (current) use of oral hypoglycemic drugs; Z87.891 Personal history of nicotine dependence; Z98.890 Other specified postprocedural states

== ENCOUNTER 2021-03-05 14:26 | Emergency (ER) | payer OTHER ==
[~2021-03-05] VITALS: Ht 177.8 cm; Wt 90.7 kg
--- NOTE | ~2021-03-05 | EMS ---
[place] [address] EMS Patient Care Report Name: JULITA LOMAX Room #: REG WALESKA Woodall#: [id number] Admission: 03/05/21 Attend Phys: Discharge: Date of : 41 Report #: [id number] THIS REPORT FOR: //name// Report Transmitted: 03/05/2021 14:49 EMS Care Summary [place], [place]/[facility] Incident [id number] @ 03/05/2021 13:51 Incident Location [address] [place], [place] [id number] Patient JULITA LOMAX Male, 75 Years 1945 Patient Address [address] [place] [address] Patient History Diabetes, Patient Allergies Penicillin allergy, Patient Medications Victoza, Chief Complaint hypotension Disposition Transported No Lights/[place] Dispatch Reason Sick Person Transported To [facility] Narrative nh staff stated pt had a brief episode of hypotension. nh staff pt did not any syncopal episode. nh staff stated pts bp was 78 sys. nh staff stated pts doctor directed for pt to be transported to [facility]. pt found sitting upright in chair and alert. pt alert and slightly confused gcs 14 which is pts baseline. pt has [address] [address] EMS Patient Care Report Name: JULITA LOMAX Room #: REG WALESKA Woodall#: [id number] Admission: 03/05/21 Attend Phys: Discharge: Date of : 41 Report #: [id number] no complaints and stated he has felt fine all day. pt walked to ems cot near front door without incident pt was transferred onto ems cot and was secured in a semi fowlers position without incident. pt was loaded into ambulance. pt was transported non emergent. transport was uneventful and pt rested on ems cot. pt care was transferred to appropriate staff and ems goes back in service. Initial Vitals @14:13P: 66,R: 20,BP: 102/62,Pain: 0/10,GCS: 14,Glucose: 136,SpO2: 94,Revised Trauma: 12, @14:22P: 70,R: 20,BP: 96/60,GCS: 14,SpO2: 98,Revised Trauma: 12, Assessments @14:07MENTAL:SKIN:No Abnormalities,HEENT:Head/Face: No Abnormalities,Eyes: No Abnormalities,Neck/Airway: No Abnormalities,LUNG SOUNDS:General: No Abnormalities,Left Upper: No Abnormalities,Right Upper: No Abnormalities,Left Lower: No Abnormalities,Right Lower: No Abnormalities,ABDOMEN:General: No Abnormalities,Left Upper: No Abnormalities,Right Upper: No Abnormalities,Left Lower: No Abnormalities,Right Lower: No Abnormalities,PELVIS//GI:No Abnormalities,EXTREMITIES:Left Arm: No Abnormalities,Right Arm: No Abnormalities,Left Leg: No Abnormalities,Right Leg: No Abnormalities,PULSE:NEURO:No Abnormalities,@14:14MENTAL:No Abnormalities,SKIN:No Abnormalities,HEENT:Head/Face: No Abnormalities,Eyes: No Abnormalities,Neck/Airway: No Abnormalities,LUNG SOUNDS:General: No Abnormalities,Left Upper: No Abnormalities,Right Upper: No Abnormalities,Left Lower: No Abnormalities,Right Lower: No Abnormalities,ABDOMEN:General: No Abnormalities,Left Upper: No Abnormalities,Right Upper: No Abnormalities,Left Lower: No Abnormalities,Right Lower: No Abnormalities,PELVIS//GI:No Abnormalities,EXTREMITIES:Left Arm: No Abnormalities,Right Arm: No Abnormalities,Left Leg: No Abnormalities,Right Leg: No Abnormalities,PULSE:NEURO:No Abnormalities, Impression Need for continuous medical supervision Procedures @14:07 ALS Assessment Response: UnchangedSucceeded Timeline 13:48,Call Received 13:48,Dispatch Notified 13:51,Dispatched 13:52,En Route 14:06,On Scene 14:07,At Patient 14:07,ALS Assessment,Response: UnchangedSucceeded, [facility] [address] [place] [address] EMS Patient Care Report Name: JULITA LOMAX Room #: REG ER Jose C#: [id number] Admission: 03/05/21 Attend Phys: Discharge: Date of : 41 Report #: [id number] 14:13,BP: 102/62 M,PULSE: 66,RR: 20 R,SPO2: 94 Ox,ETCO2: ,B,PAIN: 0,GCS: 14, 14:14,Depart Scene 14:22,BP: 96/60 M,PULSE: 70,RR: 20 R,SPO2: 98 Ox,ETCO2: ,BG: ,PAIN: ,GCS: 14, 14:23,At Destination 14:35,Call Closed Disclaimer v1.1 Copyright 2020 [employer] This EMS Care Summary contains data elements from the applicable legal record (which may be displayed differently). It is designed to provide pertinent information for the following purposes: continuity of care, clinical quality, and state data reporting. The complete legal record is available to ED staff and administrators of the receiving hospital in [employer] Patient Tracker. All data is provided "as is."
[2021-03-05 14:49] LABS: ABSOLUTE NEUTROPHILS 8.1 thou/uL (1.4-8.2); BASOPHILS 0.7 % (0.0-2.0); EOSINOPHILS 9.4 % (0.0-3.0); HEMATOCRIT 35.8 % (42.0-52.0); HEMOGLOBIN 11.5 gm/dL (14.0-18.0); MCH 29.7 pg (26.0-34.0); MCHC 32.1 g/dL (28.0-37.0); MCV 92.5 fL (80.0-100.0); MONOCYTES 5.6 % (1.0-8.0); PLATELET COUNT 231 thou/uL (150-400); POLYS 73.3 % (36.0-66.0); RBC 3.87 mil/uL (4.50-6.00); RDW 16.5 % (10.5-14.5); WBC 11.1 thou/uL (4.0-11.0)
[2021-03-05 15:00] LABS: CALCIUM 9.2 mg/dL (8.5-10.1); CREATININE 3.8 mg/dL (0.7-1.3); POTASSIUM 3.1 mmol/L (3.5-5.1)
[2021-03-05 15:06] LABS: ALBUMIN 3.4 g/dL (3.4-5.0); DIRECT BILIRUBIN 0.3 mg/dL (<0.1-0.2); TOTAL BILIRUBIN 0.6 mg/dL (0.2-1.0); TOTAL PROTEIN 7.2 g/dL (6.4-8.2)
[2021-03-05 19:24] LABS: URINE BILIRUBIN NEGATIVE (Negative); URINE BLOOD NEGATIVE (Negative); URINE CLARITY CLEAR; URINE COLOR YELLOW; URINE GLUCOSE-RANDOM* NEGATIVE (Negative); URINE KETONES NEGATIVE (Negative); URINE LEUKOCYTES-REFLEX NEGATIVE (Negative); URINE NITRITE-REFLEX NEGATIVE (Negative); URINE PROTEIN (DIPSTICK) 1+ (Negative); URINE SPECIFIC GRAVITY 1.015 (1.005-1.035); URINE UROBILINOGEN 0.2 E.U./dl (0.2-1.0)
[2021-03-05 19:33] LABS: BACTERIA-REFLEX 1-9 Few /HPF (None Seen); CASTS None Seen /LPF (None Seen); CRYSTALS None Seen /LPF (None Seen); SQUAMOUS None Seen /LPF (0-3); URINE RBC None Seen /HPF (NONE SEEN); URINE WBC-REFLEX 0-5 Rare /HPF (0-5)
[2021-03-05 20:48] VITALS: BP 134/87
--- NOTE | 2021-03-06 07:59 | EKG ---
[place] [address] [facility] [place] [address] ELECTROCARDIOGRAM REPORT Name: JULITA LOMAX [id number] Admission: 03/05/21 Attend Phys: Discharge: 03/05/21 Date of : 41 Report #: [id number] [facility] ED Test Date: 2021-03-05 Test Time: 14:35:10 Pat Name: JULITA LOMAX Department: Room: Gender: M [employer]: [employer] : 1945 Requested By: Maddison Jaramillo Order Number: [id number] MD: Anand Benítez Measurements Intervals Hines Rate: 64 P: -29 NH: 256 QRS: 27 QRSD: 99 T: 12 QT: 415 QTc: 428 Interpretive Statements Sinus rhythm Prolonged NH interval Anteroseptal infarct, age indeterminate Compared to ECG 10/28/2020 15:41:54 No significant changes Electronically Signed On 03-06-2021 7:59:35 GI PHYSICIAN by Anand Benítez [email or web address] <ELECTRONICALLY SIGNED> By: Anand Benítez MD, [facility] 03/06/21 0759 D: [id number] Anand Benítez MD, FACC /EPI
== END 2021-03-05 20:50 | disposition home or self-care (01) ==
LOC: ER 14:26
PROVIDERS: Emergency Medicine
DX: E86.0 Dehydration (principal); I10 Essential (primary) hypertension; M10.9 Gout, unspecified; I12.9 Hypertensive chronic kidney disease with stage 1 through stage 4 chronic kidney disease, or unspecified chronic kidney disease; E11.22 Type 2 diabetes mellitus with diabetic chronic kidney disease; N18.9 Chronic kidney disease, unspecified; F12.10 Cannabis abuse, uncomplicated; F31.9 Bipolar disorder, unspecified; Z90.49 Acquired absence of other specified parts of digestive tract; Z79.51 Long term (current) use of inhaled steroids; Z79.82 Long term (current) use of aspirin; Z79.891 Long term (current) use of opiate analgesic; Z79.1 Long term (current) use of non-steroidal anti-inflammatories (NSAID); Z79.899 Other long term (current) drug therapy; Z88.0 Allergy status to penicillin; Z87.891 Personal history of nicotine dependence

== ENCOUNTER → 2021-03-20 | Outpatient (CLI) | payer OTHER | LOC: SJCVC 13:27 | PROVIDERS: ATTEND Internal Medicine Cardiovascular Disease | DX: I25.10 Atherosclerotic heart disease of native coronary artery without angina pectoris (principal); E78.00 Pure hypercholesterolemia, unspecified; R60.9 Edema, unspecified; E78.5 Hyperlipidemia, unspecified; N18.9 Chronic kidney disease, unspecified; I12.9 Hypertensive chronic kidney disease with stage 1 through stage 4 chronic kidney disease, or unspecified chronic kidney disease; E11.22 Type 2 diabetes mellitus with diabetic chronic kidney disease; I44.0 Atrioventricular block, first degree; R94.31 Abnormal electrocardiogram [ECG] [EKG]; Z88.0 Allergy status to penicillin; Z79.82 Long term (current) use of aspirin; Z79.899 Other long term (current) drug therapy; Z87.891 Personal history of nicotine dependence ==

== ENCOUNTER → 2021-06-14 | Outpatient (CLI) | payer OTHER | LOC: SJCVCIMAG 08:41 | PROVIDERS: ATTEND Internal Medicine Cardiovascular Disease | DX: I25.10 Atherosclerotic heart disease of native coronary artery without angina pectoris (principal); I12.9 Hypertensive chronic kidney disease with stage 1 through stage 4 chronic kidney disease, or unspecified chronic kidney disease; I25.5 Ischemic cardiomyopathy; E78.00 Pure hypercholesterolemia, unspecified; N18.9 Chronic kidney disease, unspecified; Z88.0 Allergy status to penicillin; Z79.82 Long term (current) use of aspirin; Z79.899 Other long term (current) drug therapy ==